=== PATIENT | female | born 1995 | race Caucasian/White ===

== ENCOUNTER → 2019-11-22 16:20 | Outpatient (CLI) | payer BC, SELFPAY ==
--- NOTE | ~2019-11-22 | XR_ITS ---
XR wrist LT min 3V 11/22/2019 17:06 Indication: Left wrist pain Procedure: 4 views left wrist Comparison: No prior studies for comparison. Findings: Fracture, subluxation or dislocation. Normal anatomic alignment. No significant joint space narrowing. No erosive changes. No focal soft tissue abnormality. No foreign bodies. Impression: 1: No significant bone or joint abnormality. Reviewed, dictated and finalized at location A. Impression: 1: No significant bone or joint abnormality.
== END ==
PROVIDERS: Visit Provider Chiropractor
DX: M25.532 Pain in left wrist (principal)
CPT/HCPCS: 73110

== ENCOUNTER → 2021-01-13 00:44 | Outpatient (CLI) | payer BC, SELFPAY ==
[2021-01-13 17:41] LABS: SARS-CoV-2 RNA PCR Negative
== END ==
PROVIDERS: Visit Provider Internal Medicine Critical Care Medicine
DX: Z01.812 Encounter for preprocedural laboratory examination (principal); Z20.822 Contact with and (suspected) exposure to COVID-19
CPT/HCPCS: C9803; U0003; U0005

== ENCOUNTER 2021-01-15 07:27 | Outpatient (CLI) | payer BC, SELFPAY ==
--- NOTE | 2021-02-03 12:26 | WPDSLEEPSTUD ---
Sleep Study Date of Study: 01/15/21 Ordering Provider: Christopher Alvarez MD Interpreting Physician: Yvette Plasencia MD Sleep Study Type: Polysomnogram Height: 1.73 m Weight: 124.738 kg Body Mass Index: 41.8 Neck Circumference (inches): 15 Red Bud: 16 Reason for Sleep Study Hypersomnolence, loud snoring, chronic fatigue 11/17/2020 Home Sleep Test at [facility] with mild obstructive sleep apnea, apnea-hypopnea index is 2.7, all events were in the supine position, lowest desaturation 90% Sleep History Arelis Shelton is a 25 year old female with extreme hypersomnolence. She has loud snoring and constant daytime fatigue. She had COVID 01 Sep 2020 with residual problems including shortness of breath. She has a long standing seizure disorder which is well controlled. She had a home sleep test through [facility] in [facility] with a low AHI, 2.7 and lowest desaturation 90%. There is no sleep questionnaire available to review. The sleep history is obtained from the office visit 11/07/2020. Her normal bedtime is between 11:00 p.m. to midnight, wake time is 5-5:30 a.m.. Sleep onset latency is 30-45 minutes. She typically wakes once at night. She averages 6 hours of sleep at night. She snores loudly and there is a strong family history of obstructive sleep apnea in both parents. She has chronic fatigue. She falls asleep in sedentary circumstances such as sitting and reading, watching TV, sitting as a passenger in a car for an hour, lying down to rest, sitting quietly after lunch and sitting in a car while stopped in traffic. Habits: Never smoked tobacco. [facility] Past Medical History Medical History (Updated 02/03/21 @ 13:22 by Yvette Plasencia MD) Chronic fatigue History of asthma History of COVID-19 Morbid obesity with BMI of 40.0-44.9, adult Persistent dyspnea after COVID-19 Seizure disorder Surgical History Surgical History (Updated 02/03/21 @ 12:44 by Yvette Plasencia MD) History of nasal septoplasty History of tonsillectomy and adenoidectomy History of umbilical hernia repair Family History Family History (Updated 04/10/14 @ 07:13 by DOCTOR UNKNOWN) Father Hypertension Grandparent Carcinoma of colon Family history of malignant neoplasm of cervix Family history of lung cancer Family history of coronary artery disease Family history of elevated blood lipids Diabetes mellitus Family history of malignant neoplasm of male breast Other Cerebrovascular accident Social History Social History Smoking status: Never smoker Second hand tobacco smoke exposure: No Alcohol intake: never Medications Medications: vitamins 1 daily lamotrigine 100 mg twice a day albuterol HFA 90 mcg 2 puffs p.r.n. shortness of breath spironolactone 25 mg 3 times a day levocetirizine 5 mg daily [place] as needed for pain Flexeril as needed for pain Rybelsus ( semaglutide ) 3 mg once a day Sleep Procedure This test was performed using the [employer] multiple channel system including EOG, EEG, submental EMG, EKG, nasal and oral airflow using thermistors and nasal pressure sensors, chest and abdominal belts for body position data, and pulse oximetry. Video monitoring was also performed. The study was scored using CMS guidelines. Sleep Architecture The recording time is 462.4 minutes. Sleep time is 406.6 minutes. Sleep efficiency is 87.8%. Sleep latency is short, 0.9 minutes. REM latency delayed at 176 minutes. There 21 awakenings. The patient spent 12% of the study awake after sleep onset, 55.5 minutes. Sleep architecture showed 2.4% stage 1 sleep, 58.4% stage 2 sleep, 14.7% stage 3 sleep, and 12.5% stage REM. The patient was supine for 32.5% of the study. Sleep architecture showed 2 REM cycles that were fragmented in the last half of the night. She had an episode of wake lasting 28 minutes in the middle of the study. The patient had a severe headache before going to bed and had problems with her nasal brii
[2021-02-05 15:26] VITALS: BMI 41.8
== END 2021-01-16 07:34 | disposition home or self-care (01) ==
LOC: ANHCSM 07:28
DX: R06.83 Snoring (principal)
CPT/HCPCS: 95810

== ENCOUNTER 2021-12-20 16:31 | Outpatient (CLI) | payer OTHER, SELFPAY ==
--- NOTE | ~2021-12-20 | MR_ITS ---
EXAMINATION: MR lumbar spine wo con DATE: 12/20/2021 17:08 INDICATION: Chronic bilateral low back pain without sciatica . TECHNIQUE: Magnetic resonance imaging (MRI) of the lumbar spine was performed without intravenous con trast. Sequences included sagittal T2-weighted FSE, sagittal T2-weighted FS FSE, sagittal T1-weighted FSE, and axial T2-weighted FSE. COMPARISON: Lumbar spine x-ray 11/21/2014. FINDINGS: The last fully formed and hydrated disc is designated L5-S1. The marrow signal is benign an d homogenous. Conus terminates at L1. Disc dehydration at L5-S1, otherwise the discs are well hydrate d. The following disc levels are specifically discussed: T11-T12: The disc does not extend beyond the endplate margin. There is no facet joint osteoarthritis. There is no neural foraminal stenosis. There is no central canal stenosis. T12-L1: The disc does not extend beyond the endplate margin. There is no facet joint osteoarthritis. There is no neural foraminal stenosis. There is no central canal stenosis. L1-L2: The disc does not extend beyond the endplate margin. There is no facet joint osteoarthritis. T here is no neural foraminal stenosis. There is no central canal stenosis. L2-L3: The disc does not extend beyond the endplate margin. There is no facet joint osteoarthritis. T here is no neural foraminal stenosis. There is no central canal stenosis. L3-L4: The disc does not extend beyond the endplate margin. There is no facet joint osteoarthritis. T here is no neural foraminal stenosis. There is no central canal stenosis. L4-L5: Mild diffuse bulge. There is mild facet joint osteoarthritis. There is no neural foraminal mendoza nosis. There is no central canal stenosis. L5-S1: Mild diffuse bulge. There is mild facet joint osteoarthritis. There is no neural foraminal mendoza nosis. There is no central canal stenosis. IMPRESSION: 1. Mild degenerative disc disease at L4-5. 2. Mild lower lumbar facet arthropathy. Reviewed, dictated and finalized at location K.
== END 2021-12-20 16:32 ==
PROVIDERS: PCP Family Medicine; Visit Provider Anesthesiology Pain Medicine
DX: M54.50 Low back pain, unspecified (principal); G89.29 Other chronic pain; M51.36 Other intervertebral disc degeneration, lumbar region; M12.88 Other specific arthropathies, not elsewhere classified, other specified site
CPT/HCPCS: 72148

== ENCOUNTER 2022-03-29 09:45 | Outpatient (RCR) | payer OTHER, SELFPAY ==
--- NOTE | 2022-02-03 11:27 | PTOPEVAL ---
PHYSICAL THERAPY INITIAL EVALUATION. Thank you for referring Arelis Shelton to [facility].? The patient is scheduled to be seen for therapy? 2x/week for 4 weeks. Please review, sign, date and return this plan of care WESLY. I agree with and certify that the following plan of care is medically necessary. Referring Physician Date Attending Provider: Kota Arechiga, MD *PT Outpatient Evaluation Start: 02/03/22 Evaluation Information Diagnosis Low back pain, B foot pain Onset 5+ years Subjective Information Pt reports a 5 year history of Query Text:As Reported By Patient/ low back pain. She also sarah Family foot and ankle pain s/p bunion removal January. 2020, she has completed close to 6 months of therapy for this. Pt states she has tried traditional therapy for her low back without much relief. She has a history of endometritis for which she has completed pelvic floor therapy . She has a script and is interested in aquatic therapy. Pain Assessment Self Report Pain Assessment Lower Back Reported Pain Level 4 Pain Description Aching,Sharp Pain Frequency Chronic,Intermittent Lowest Pain Intensity 4 Greatest Pain Intensity 9 Lumbar ROM Lumbar Flexion (0-90) 40 Lumbar Flexion Active Ankle Lumbar Extension (0-40) 40 Lateral Flexion able to reach lateral knee Query Text:Active Hands to: joint line bilaterally Lateral Rotation Right (0-45) 45 Lateral Rotation Left (0-45) 45 Lower Extremity Range of Motion General Lower Extremity Range of Motion WFL/Left,WFL/Right Lower Extremity Muscle Strength Testing Gross Lower Extremity Strength L hip flexion 4/5 R hip flexion 4+/5 saarh knee flexion/extension 5/5 sarah hip extension 4/5 sarah hip abduction 4/5 Muscle Length Testing Right Prone Hip Internal Rotator Length 30 Left Prone Hip Internal Rotator Length ( 30 Right Prone Hip External Rotator Length 45 Left Prone Hip External Rotator Length ( 45 Left Hamstring Length -15 Right Hamstring Length -15 Right Prone Knee Flexor Muscle Length ( 100 Left Prone Knee Flexor Muscle Length ( 100 Posture Posture Evaluation View Posterior Head/C-Spine Posture
--- NOTE | 2022-02-21 14:31 | PCPTNOTE ---
Patient called & cancelled scheduled appointment this date due to not feeling well.
--- NOTE | 2022-03-03 14:50 | PTOPEVAL ---
PHYSICAL THERAPY PROGRESS REPORT. Thank you for referring Arelis Shelton to [facility].? The patient is scheduled to be seen for therapy? 2x/week for 4 weeks. Please review, sign, date and return this plan of care WESLY. I agree with and certify that the following plan of care is medically necessary. Referring Physician Date Attending Provider: Kota Arechiga, MD Assessment Status Progress Evaluation Information Diagnosis Low back pain, B foot pain Onset 5+ years Subjective Information Pt states her back and feet Query Text:As Reported By Patient/ still hurt. She states her Family back hurts most in the morning , because she does not sleep at night. Pt states once she falls asleep she can stay asleep. She has talked with multiple dancing master to try to work on her foot pain. Her neurologist states she thinks she has neuropathy into her feet, the dancing master thinks she has arthritis. Pt states all she does is work and go to doctors appointments so she has not been very active. Pain Assessment Lower Back Reported Pain Level 0 Greatest Pain Intensity 7 Lumbar ROM Lumbar Flexion (0-90) 60 Lumbar Flexion Active Ankle Lumbar Extension (0-40) 40 Lateral Flexion able to reach lateral knee Query Text:Active Hands to: joint line bilaterally Lateral Rotation Right (0-45) 45 Lateral Rotation Left (0-45) 45 Lower Extremity Range of Motion General Lower Extremity Range of Motion WFL/Left,WFL/Right Lower Extremity Muscle Strength Testing Gross Lower Extremity Strength L hip flexion 4/5 R hip flexion 4+/5 sarah knee flexion/extension 5/5 sarah hip extension 2+/5 L hip abduction 4+/5 R hip abduction 4/5 Posture Posture Evaluation View Posterior Head/C-Spine Posture Forward Head Thoracic Spine Posture Flattened Lumbar Spine Posture Increased Lordosis Pelvis Posture Anteriorly Tilted Additional Posture Comments significantly increased anterior pelvic tilt Palpation Assessment Palpation R PSIS and QL region Gait Assessment Ambulation Assistive Devices None Other Gait Observations increased knee valgus, increased later
--- NOTE | 2022-04-01 09:04 | PCPTNOTE ---
Patient called & cancelled scheduled re-evaluation this date due to having to work. She has not been re-scheduled at this time.
--- NOTE | 2022-04-15 15:20 | PTOPDC ---
Evaluation Information Assessment Status Discharge - Pt Not Present Diagnosis low back pain Subjective Information Called and spoke with patient on the phone as she had to cancel her re-evaluation d/t scheduling conflicts with her new job. Assessment PT Clinical Summary Called and spoke with pt. She states her back is doing well at this time. She states her new job requires her to stand all day and her back is not a limiting factor in this. She has completed a total of 14 physial therapy visits. She is to be discharged from skilled therapy services at this time with instruction to continue her HEP and to follow up with her referring provider if new symptoms occur. Plan of Care PT Services Indicated No Treatment Frequency and to be d/c'ed Duration
== END 2022-04-19 13:18 | disposition home or self-care (01) ==
LOC: ANHPT 09:45
PROVIDERS: PCP Family Medicine; Visit Provider Anesthesiology Pain Medicine
DX: M54.50 Low back pain, unspecified (principal); M46.1 Sacroiliitis, not elsewhere classified; M47.817 Spondylosis without myelopathy or radiculopathy, lumbosacral region; G89.29 Other chronic pain
CPT/HCPCS: 97014; 97110; 97112; 97140; 97161; 97530; G0283

== ENCOUNTER 2025-01-13 07:06 | Outpatient (CLI) | payer BC, SELFPAY ==
--- OUTSIDE RECORDS SUMMARY | 2025-01-13 07:13 | XMS_ITS | Encounter Summary ---
Author Organization [facility] Health Address [address] [place] [address] Care Team Providers Care Credit Risk Manager Name Role Phone Berny Dhillon DO Primary Care Provider Reason for Visit * Reason Comments Refill Request Encounter Details Date Type Department Care Team (Late st Contact Info) Description 08/11/2022 Refill [facility] [address] [place] [address] Edgar Riddle MD [address] [facility] [address] [place] [address] Refill Request Social History Tobacco Use Types Packs/Day Years Used Date Smoking Tobacco: Never Smokeless Tobacco: Never Alcohol Use Standard Drinks/Week Comments No 0 (1 standard drink = 0.6 oz pur e alcohol) Comments No Sex and Gender Information Value Date Recorded Sex Assigned at Female 01/19/2022 7:06 PM CDT Legal Sex Female 5:44 AM CAR HOP Gender Identity Female 01/19/2022 7:06 PM CDT Sexual Orientation Straight 01/19/2022 7: 06 PM CDT documented as of this encounter Plan of Treatment Not on file documented as of this encounter Visit Diagnoses Not on filedocumented in this encounter Care Teams Credit Risk Manager Relationship Specialty Start Date End Date Berny Dhillon DO [address] [place] [id number] PCP - General Family Medicine 11/29/17 documented as of this encounter
--- OUTSIDE RECORDS SUMMARY | 2025-01-13 07:13 | XMS_ITS ---
Author Organization [employer] [facility] Address [address] [place] [address] Care Team Providers Care Industrial Tech Instructor Name Role Phone Misty Woods Primary Care Provider REASON FOR VISIT 3 Month Follow-up Encounters Encounter Location Date Provider Diagnosis [facility] - Misty Woods [address] [place] [address] 11/22/2024 Misty Woods Plan Of Treatment No Information Progress Notes * Arelis SHELTONDOB: 5 (29 yo F)Acc No.[id number]:11/22/2024 Progress Notes Patient: Arelis SORENSON Provider: Zhanna Woods MD :1995 A ge:29 Y S ex:Female Date:11/22/2024 Phone: [facility] Subjective: * Chief Complaints: * 1 . 3 Month Follow-up. * Medical History: Objective: * Vitals: Assessment: Plan: * Treatment: * Billing Information: * Visit Code: * Procedure Codes: * Electronic signature of Pernell Wodos MD on 01/13/2025 at 07:13 AM CDT Sign off status: Pending * Provider: Zhanna Woods MD Date: 11/22/2024 Generated for Babita mtz/Popeye/Eduardoitting on: 01/13/2025 07:13 AM CDT
--- OUTSIDE RECORDS SUMMARY | 2025-01-13 07:13 | XMS_ITS | Encounter Summary ---
Author Organization [facility] Health Address [address] [facility] [place] [address] Care Team Providers Care American Board Certified Orthotist Name Role Phone Berny Dhillon DO Primary Care Provider [phone] Reason for Visit * Reason Onset Date Comments COVID-19 IMMUNIZATION/INJECTION 08/24/2021 Preop Question 08/24/2021 Encounter Details Date Type Department Care Team (Late st Contact Info) Description 08/24/2021 Telephone [facility] [address] [place] [id number] Edgar Riddle MD [address] [facility] [address] [place] [address] COVID-19 IMMUNIZATION/INJECTION ; Preop Question Social History Tobacco Use Types Packs/Day Years Used Date Smoking Tobacco: Never Smokeless Tobacco: Never Alcohol Use Standard Drinks/Week Comments No 0 (1 standard drink = 0.6 oz pur e alcohol) Comments No Sex and Gender Information Value Date Recorded Sex Assigned at Female 01/19/2022 7:06 PM CDT Legal Sex Female 5:44 AM MANAGER RESEARCH DEVELOPMENT Gender Identity Female 01/19/2022 7:06 PM CDT Sexual Orientation Straight 01/19/2022 7: 06 PM CDT documented as of this encounter Miscellaneous Notes * Telephone Encounter - Nupur Hamlin RN - 08/24/2021 10:25 AM MANAGER RESEARCH DEVELOPMENT RN returned call to patient. Pt stating she is mandated to get the Covid vaccine at work by 09/22/21.Pt stating she was wanting to clarify with Dr. Celeste if she needed to hold off on vaccine prior to surgery. Pt does not have surgery day scheduled yet, order placed 08/20/21. RN advised it is okay to get Covid vaccine prior to surgery. Pt stating she read an article about vaccine and messing up yourcycle. and would like to Dr. Celeste to advise. Per pt she would like to hold off on vaccine if possible and would be required to have an exemption to give to her employer. Will pass on to MD to advise GER RESEARCH DEVELOPMENT * Telephone Encounter - Bharti Summers - 08/24/2021 10:[address] Celeste discussed surgery with patient. It hasn't been scheduled yet. Patient's work is mandating she get vaccinated by 09/22/21. She wants to know if she should wait to have the surgery until after she's vaccinated. Please advise: [phone] GER RESEARCH DEVELOPMENT documented in this encounter Plan of Treatment Not on file documented as of this encounter Visit Diagnoses Not on filedocumented in this encounter Care Teams American Board Certified Orthotist Relationship Specialty Start Date End Date Berny Dhillon DO [address] [place] [id number] PCP - General Family Medicine 11/29/17 documented as of this encounter
--- OUTSIDE RECORDS SUMMARY | 2025-01-13 07:13 | XMS_ITS ---
Author Organization [facility] Address [address] [place] [address] Care Team Providers Care Pearl Fisherman Name Role Phone Misty Woods Primary Care Provider [phone] REASON FOR VISIT Provider change for medication Encounters Encounter Location Date Provider Diagnosis [facility] - Misty Woods [address] [place] [address] 10/09/2024 Misty Woods Plan Of Treatment No Information Progress Notes * SHIRAArelis QIUDOB: 5 (29 yo F)Acc No.[id number]:10/09/2024 Patient: Arelis SORENSON :1995 A ge:29 Y S ex:Female Phone: Address:[address] [place] [place] [address] * * Date:
--- OUTSIDE RECORDS SUMMARY | 2025-01-13 07:13 | XMS_ITS | Clinical Summary ---
Author Organization [facility] Address [address] [place] [address] Care Team Providers Care L D Rn Name Role Phone Jacquie Berny Primary Care Provider [phone] Source Comments [facility],non-owned Affiliates and Associated Physician Practices is amultiple site organization consisting of ambulatory clinics and hospital sitesin [place], [place], [place] and [place]. This disclosure is being madepursuant to the Care Everywhere program and may not contain all information available regarding this patient. Last updated 18.[facility] Allergies Active Allergy Reactions Criticality Noted Date Comments Adhesive Sensitivity Rash Medium 12/29/2020 Redness Oxycodone Rash Medium 08/20/2021 Pseudoephedrine Sulfate Other 11/08/2011 Pupils constrict Sulfa Drugs Rash Low 11/12/2011 Parents think pt is allergic to sulfa drugs; ED stated it was only unrelated eczema Medications * This document contains information received from the source organization and may not represent a complete record from that organization. * Be aware that medications may not be up to date on this document. Alwaysverify current medications with the patient. terbinafine (LAMISIL) 250 MG tablet Take 250 mg by mouth once daily Active lamoTRIgine (LAMICTAL) 100 MG tablet Take 100 mg by mouth 2 times daily Active Naftifine HCl 2 % Active etodolac (LODINE) 500 MG tablet Take 500 mg by mouth 2 times daily Active meloxicam (MOBIC) 15 MG tablet Take 15 mg by mouth once daily as needed Active spironolactone (ALDACTONE) 100 MG tablet Take 100 mg by mouth once daily Active minocycline (MINOCIN) 50 MG tablet Take 50 mg by mouth 2 times daily Active Gbefuk-SxThn-Byr ed-FA-DHA w/oA (PRENA1 DRU) 30-1.4-200 MG CPCR Take 1 tablet by mouth once daily Active cyclobenzaprine (FLEXERIL) 10 MG tablet 3 times daily as needed 1 Active blood glucose (ANTHONY CONTOUR NEXT TEST) test strip 1 Active Microlet Lancets MISC 1 Active triamcinolone acetonide (KENALOG) 0.1 % ointment 1 Active ZOLMitriptan (ZOMIG) 5 MG tablet 5 mg once as needed 1 Active albuterol HFA (PROVENTIL; VENTOLIN; PROAIR) 108 (90 Base) MCG/ACT inhaler Inhale 2 puffs by mouth 1 Active clindamycin-juan oyl peroxide (DUAC) 1.2-5 % gel 1 Active ondansetron (ZOFRAN) 4 MG tablet 1 Active phentermine (IONAMINE) 30 MG capsule 30 mg once daily 1 Active Progesterone 100 MG capsule 100 mg at bedtime 1 Active tretinoin (RETIN-A) 0.025 % cream 1 Active eletriptan (RELPAX) 40 MG tablet Take 40 mg by mouth 2 Active propranolol CR 24hr (INDERAL LA) 60 MG capsule 60 mg once daily 2 Active tiZANidine (ZANAFLEX) 4 MG tablet Take 4 mg by mouth every 8 hours as needed for Muscle Spasms Active ibuprofen (MOTRIN) 600 MG tablet Take 1 (one) tablet by mouth every 6 hours as needed for Pain 40 tablet 1 2 Active senna-docusate (SENOKOT-S) 8.6-50 MG tablet Take 1 (one) tablet by mouth once daily 50 tablet 2 Active simethicone (MYLICON) 80 MG chew tablet Take 1 (one) tablet by mouth 4 times daily after meals 50 tablet 2 Active ondansetron, disintegrating, (ZOFRAN ODT) 4 MG tablet Take 1 (one) tablet by mouth every 6 hours as needed for Nausea/Vomiti ng Allow tablet to dissolve on the tongue 25 tablet 2 Active polyethylene glycol 3350 (MIRALAX) 17 GM/SCOOP powder Take 17 (seventeen) g by mouth once daily 500 g 2 Active HYDROcodone-acet aminophen (NORCO) 5-325 MG tablet Take 1 (one) tablet by mouth every 4 hours as needed 20 tablet 2 Active bethanechol (URECHOLINE) 10 MG tablet TAKE ONE TABLET BY MOUTH THREE TIMES A DAY 90 tablet 1 2 Active baclofen (Lioresal) 10 MG tablet TAKE 1 TABLET BY MOUTH TWICE A DAY 90 tablet 1 3 Active norethin-eth estradiol-FE (Loestrin Fe 09/02; Junel Fe 09/02; Microgestin Fe 09/02) 1-20 MG-MCG tablet Take 1 (one) tablet by mouth once daily 84 tablet 4 3 Active norethindrone (Aygestin) 5 MG tablet Take 1 (one) tablet by mouth once daily 30 tablet 2 5 Active Active Problems Problem Noted Date Diagnosed Date Preoperative testing 10/26/2021 Post-operative state 10/26/2021 Dehydration 11/12/2011 Overview (11/12/2011): Arelis is a 16 year old female s/p dental surgery one day prior to admission who presented with bleeding from her op site, emesis, diarrhea, and feeling lightheaded and dizzy. Zofran did not help emesis and she had not been tolerating PO (including PCN and pain medication). Given 1L NS bolus in ED x2. BMP and CBC consistent with dehydration. WBC elevation with left shift likely due to demargination from recent surgery. Admitted for hydration and pain control. Assessment/Ddx: dehydration from poor PO intake and high output from stools and emesis. Plan: -Cv/Resp: positive orthostatics in ED. Monitor vitals. Bedrest with bathroom privileges. -FEN/GI: mechanical soft diet, MIVF. Monitor I/O -ID: continue prescribed PCN. High WBC likely reactive from surgery. Monitor for fevers. -Neuro/Pain: oxycodone PRN for pain. Ice packs to face for swelling, pain relief Thrombocytopenia 11/08/2011 Encounters Date Type Department Care Team Description 12/22/2024 Refill [facility] - TRAINING COORDINATOR [address] [place] [address] Grace Tan MD Refill Request from Last 3 Months Family History Medical History Relation Name Comments Other Brother brother has EE Diabetes - Type 1 Father Asthma Mother Diabetes - Type 1 Mother Relation Name Status Comments Brother Father Mother Social History Tobacco Use Types Packs/Day Years Used Date Smoking Tobacco: Never Smokeless Tobacco: Never Tobacco Cessation:Counseling Given: Not Answered Alcohol Use Standard Drinks/Week Comments No 0 (1 standard drink = 0.6 oz pur e alcohol) PHQ-2 Answer Date Recorded Patient Health Questionnaire-2 Score 1 10/15/2023 Comments No Sex and Gender Information Value Date Recorded Sex Assigned at Female 01/19/2022 7:06 PM CDT Legal Sex Female 5:44 AM OBSTETRICS GYN Gender Identity Female 01/19/2022 7:06 PM CDT Sexual Orientation Straight 01/19/2022 7: 06 PM CDT Last Filed Vital Signs Vital Sign Reading Time Taken Comments Blood Pressure 126/78 10/18/2023 3:01 PM OBSTETRICS GYN Pulse 74 10/27/2021 12:00 PM CDT Temperature 37 C (98.6 F) 10/27/2021 12:00 PM CDT Respiratory Rate 20 10/27/2021 12:00 PM CDT Oxygen Saturation 98% 10/27/2021 12:00 PM CDT Inhaled Oxygen Concentration - - Weight 129.7 kg (286 lb) 10/18/2023 3:01 PM OBSTETRICS GYN Height 172.7 cm (5' 8) 10/18/2023 3:01 PM OBSTETRICS GYN Body Mass Index 43.49 10/18/2023 3:01 PM OBSTETRICS GYN Plan of Treatment Health Maintenance Due Date Last Done Comments PAP SMEAR 1995 HIV SCREENING 2010 HEPATITIS C SCREENING 07/13/2013 DTAP/TDAP/TD VACCINES (1 - Tdap) 2014 HEPATITIS B VACCINE (1 of 3 - 19+ 3-dose series) 2014 COVID-19 VACCINE (1 - 2023-2 5 season) 2024 DEPRESSION SCREENING 08/14/2024 10/18/2023 INFLUENZA VACCINE (Season Ended) 2025 ZOSTER VACCINE (1 of 2) 2045 HIB VACCINE Aged Out No longer eligi ble based on patient's age to complete this topic HPV VACCINE Aged Out No longer eligi ble based on patient's age to complete this topic MENINGOCOCCAL (Group B) VACC INE SHARED DECISION-MAKING Aged Out No longer eligibl e based on patient's age to complete this topic MENINGOCOCCAL GROUPS A/C/Y/W VACCINE Aged Out No longer eligible b ased on patient's age to complete this topic PNEUMOCOCCAL VACCINE Aged Out No long er eligible based on patient's age to complete this topic Medical Devices Implanted Type Area Emergency Communications Officer Device Identifier Shelf Expiration Date Model / Serial / Lot Graft Tissue Amniofix Purion Amnio Membr Implanted:Qty: 1 on 10/26/2021 by Edgar Riddle MD at [facility] N/A: Abdomen MiMedx 05/14/2026 [facility]-[id number] / / Description:[id number] Insurance [facility] [place] [address] ANTH Care Teams L D Rn Relationship Specialty Start Date End Date Berny Dhillon DO [address] [place] [address] [id number] PCP - General Family Medicine 11/29/17
--- OUTSIDE RECORDS SUMMARY | 2025-01-13 07:14 | XMS_ITS | Encounter Summary ---
Author Organization [facility] Address [address] [place] [address] Care Team Providers Care Design Lead Name Role Phone Berny Dhillon DO Primary Care Provider [phone] Reason for Visit * Reason Onset Date Comments Medication Refill 01/18/2022 Encounter Details Date Type Department Care Team (Late st Contact Info) Description 01/18/2022 [address]ill [facility] [address] [place] [address] Berny Dhillon DO [address] [address] Social History Tobacco Use Types Packs/Day Years Used Date Smoking Tobacco: Never Smokeless Tobacco: Never Alcohol Use Standard Drinks/Week Comments No 0 (1 standard drink = 0.6 oz pur e alcohol) Comments No Sex and Gender Information Value Date Recorded Sex Assigned at Not on file 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
--- OUTSIDE RECORDS SUMMARY | 2025-01-13 07:14 | XMS_ITS | Encounter Summary ---
Author Organization [facility] Address [address] [place] [address] Care Team Providers Care Community Mental Health Worker Name Role Phone Berny Dhillon DO Primary Care Provider [phone] Reason for Visit * Reason Onset Date Comments Medication Refill 01/18/2022 Encounter Details Date Type Department Care Team (Late st Contact Info) Description 01/18/2022 [address]ill [facility] [address] [place] [address] Berny Dhillon DO [address] [address] Social History Tobacco Use Types Packs/Day Years Used Date Smoking Tobacco: Never Smokeless Tobacco: Never Alcohol Use Standard Drinks/Week Comments No 0 (1 standard drink = 0.6 oz pur e alcohol) Comments No Sex and Gender Information Value Date Recorded Sex Assigned at Not on file 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
--- OUTSIDE RECORDS SUMMARY | 2025-01-13 07:14 | XMS_ITS | Encounter Summary ---
Author Organization [facility] Address [address] [place] [address] Care Team Providers Care Tube Former Operator Name Role Phone Berny Dhillon DO Primary Care Provider [phone] Reason for Visit * Reason Onset Date Comments Medication Refill 01/29/2022 Encounter Details Date Type Department Care Team (Late st Contact Info) Description 01/29/2022 Refill [facility] [address] [place] [address] Baldev Cesar MD [address] [facility] [address] [place] [address] Social History Tobacco Use Types Packs/Day Years Used Date Smoking Tobacco: Never Smokeless Tobacco: Never Alcohol Use Standard Drinks/Week Comments No 0 (1 standard drink = 0.6 oz pur e alcohol) Comments No Sex and Gender Information Value Date Recorded Sex Assigned at Not on file 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
--- OUTSIDE RECORDS SUMMARY | 2025-01-13 07:14 | XMS_ITS | Encounter Summary ---
Author Organization [facility] Address [address] [place] [address] Care Team Providers Care Dispatch Lead Name Role Phone Berny Dhillon DO Primary Care Provider [phone] Reason for Visit * Reason Onset Date Comments Medication Refill 01/18/2022 Encounter Details Date Type Department Care Team (Late st Contact Info) Description 01/18/2022 [address]ill [facility] [address] [place] [address] Berny Dhillon DO [address] [address] Social History Tobacco Use Types Packs/Day Years Used Date Smoking Tobacco: Never Smokeless Tobacco: Never Alcohol Use Standard Drinks/Week Comments No 0 (1 standard drink = 0.6 oz pur e alcohol) Comments No Sex and Gender Information Value Date Recorded Sex Assigned at Not on file 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
--- OUTSIDE RECORDS SUMMARY | 2025-01-13 07:14 | XMS_ITS | Encounter Summary ---
Author Organization [facility] Address [address] [place] [address] Care Team Providers Care Geodetic Technician Name Role Phone Berny Dhillon DO Primary Care Provider Reason for Visit * Reason Onset Date Comments Medication Refill 01/18/2022 Encounter Details Date Type Department Care Team (Late st Contact Info) Description 01/18/2022 Refill [facility] [address] [place] [address] Baldev Cesar MD [address] [facility] [address] [place] [address] Social History Tobacco Use Types Packs/Day Years Used Date Smoking Tobacco: Never Smokeless Tobacco: Never Alcohol Use Standard Drinks/Week Comments No 0 (1 standard drink = 0.6 oz pur e alcohol) Comments No Sex and Gender Information Value Date Recorded Sex Assigned at Not on file Legal Sex Female 5:[address] SCAN TECHNOLOGIST Gender Identity Not on file Sexual Orientation Not on file Occupation Industry Job Start Date Job End Date Not on file Not on file Not on file Not on file documented as of this encounter Plan of Treatment Not on file documented as of this encounter Visit Diagnoses Not on filedocumented in this encounter Care Teams Geodetic Technician Relationship Specialty Start Date End Date Berny Dhillon DO PCP - General Family Practice 11/19/20 documented as of this encounter
--- OUTSIDE RECORDS SUMMARY | 2025-01-13 07:14 | XMS_ITS | Data Portability ---
Author Organization [place] - [facility], Main Office Address [address] [place] [address] Care Team Providers Care Respiratory Therapist Assistant Name Role Phone ELLEN MEDELLIN Primary Care Provider Assessment Encounter Date Assessment Date Assessment LastModified by Organization Details LastModified Time 02/27/2023 02/27/2023 This note is dictated and transcribed by [employer]. Metabolic Specialist variances may occur. Despite proofreading, typographical errors may occur. Not available 02/27/2023 17:39:34 06/13/2023 06/13/2023 This note is dictated and transcribed by [employer]. Metabolic Specialist variances may occur. Despite proofreading, typographical errors may occur. Not available 06/13/2023 14:54:54 06/26/2023 06/26/2023 This note is dictated and transcribed by [employer]. Metabolic Specialist variances may occur. Despite proofreading, typographical errors may occur. Not available 06/26/2023 16:55:09 Plan of Treatment Reminders Order Date Submit Date Provider Last Modified By Organization Details Last Modified Time Details Appointments None recorded. Lab None recorded. Referral None recorded. Procedures None recorded. Surgeries None recorded. Imaging None recorded. Medication Orders ketoconazol e 2 % topical cream 2022 023 LUIS FERNANDO Pierce, [address], [place], [place], [id number], 16:56:27 spironolact one 100 mg tablet 2022 023 rancho Pierce, [address], [place], [place], [id number], 3 15:12:58 Orilissa 150 mg tablet 2022 023 LUIS FERNANDO [facility] [place], [address] [facility] , [place], [place], [id number], 3 15:13:35 Patient TargetsNo targets recorded. Patient Instructions Encounter Date Encounter Id Patient Instructions Last Modified By Organization Details Last Modified Time 06/13/2023 [id number] paronychia: care instructions Not available 06/13/2023 14:59:41 Reason for Referral None Reported. Results Created Date Observation Date Name Description Value Unit Range Abnormal Flag Note LastModifiedBy Organization Detail LastModifiedTime Result Notes None recorded. Problems Name Problem SNOMED Code Status Onset Date Resolution Date Notes Provider Name and Address Organization Details Recorded Time Generalized headache 539422131 Active 2021 Not Available [facility] 3 07:30:14 Endometriosis of pelvis 79263090 Active 2021 Not Available [facility] 3 07:30:14 Onychomycosis of toenails 965516355 Active 2022 Not Available [facility] 3 07:30:15 Bunion 079459568 Active 2022 Not Available [facility] 3 07:30:15 Prediabetes 843189267 Active 2021 Not Available [facility] 3 07:30:15 Weight gain 6964477 Active 2021 Not Available [facility] 3 07:30:15 Polycystic ovary syndrome 388111875 Active 2022 BRADLEY Durbin null, [employer] [facility] 3 09:16:26 Endometriosis (clinical) 763470856 Active 2022 Misty Woods MD [address] [place] [address], [place] [address], [place], [address] , [facility] 3 15:12:57 Problem Notes None recorded. Procedures Surgical History Date Name Laterality Status Provider Name and Address Organization Details Recorded Time 06/13/20 Blank Procedure Note completed Trent Harper DPM [address], [place], [address], [facility] 06/13/2023 15:01:35 11/15/19 Blank Procedure Note completed Trent Harper DPM [address], [place], [address], [facility] 11/15/2022 11:17:37 Unlisted procedure nose completed Not Available [facility] 10/12/2022 07:26:19 Hernia Repair completed Not Available [facility] 10/12/2022 07:26:19 Breast Biopsy completed Not Available [facility] 10/12/2022 07:26:19 Tonsillectomy completed Not Available [facility] 10/12/2022 07:26:19 excision of bunion completed Not Available [facility] 10/12/2022 07:26:19 laparoscopic excision of pelvic endometriosis completed Not Available [facility] 10/12/2022 07:26:19 Imaging Results None recorded. Procedure Notes None recorded. Medical Equipment None Reported. Allergies Allergen ID Allergen Name Allergen Category Reaction Reaction Severity Criticality Documentation Date Start Date Code Code System Note Provider Name and Address Organization Details Recorded Time 44596 Substance with sulfonami de structure and antibacte rial mechanism of action (substanc e) medicatio n Not available Not available Not available 10/12/2022 33453 8003 SNOMED Not Available [facility] 3 07:35:58 73162 Sudafed medicatio n Not available Not available Not available 10/12/202274868 2 RxNorm Not Available [facility] 3 07:35:58 59523 pseudoeph edrine Not available Not available Not available Not available 10/12/2022 8896 RxNorm Not Available [facility] 3 07:35:58 14414 acetamino phen / oxycodone medicatio n Not available Not available Not available 10/12/2022 12563 3 RxNorm Not Available [facility] 3 07:35:58 00179 oxycodone medicatio n Not available Not available Not available 10/12/2022 7804 RxNorm Not Available [facility] 3 07:35:58 01085 adhesive tape environme nt,medica tion Not available Not available Not available 10/12/2022 67189 UNK Not Available [facility] 3 07:35:58 Medications Name Sig Start Date Stop Date Status Note LastModified by Organization Details LastModified Time fluoxetine 40 mg capsule TAKE 1 CAPSULE BY MOUTH EVERY DAY 03/21 completed Not Available Not Available Not Available cyclobenzap rine 10 mg tablet active Not Available Not Available Not Available tretinoin 0.1 % topical cream 03/21 completed Not Available Not Available Not Available amoxicillin 500 mg capsule active Not Available Not Available Not Available terbinafine HCl 1 % topical cream APPLY TOPICALLY TO AFFECTED AREA TWICE A DAY 03/21 completed Not Available Not Available Not Available clindamycin HCl 300 mg capsule TAKE 1 CAPSULE BY MOUTH FOUR TIMES A DAY UNTIL GONE 12/22 completed Not Available Not Available Not Available Concerta 18 mg tablet,exte nded release TAKE 1 TABLET BY MOUTH EVERY DAY active Not Available Not Available No t Available Xerac AC 6.25 % topical solution Apply 1 applicati on every day by topical route in the morning for 90 days. 03/21 completed Not Available Not Available Not Available ibuprofen 800 mg tablet 04/12 completed Not Available Not Available Not Available bethanechol chloride 10 mg tablet TAKE 1 TABLET BY MOUTH THREE TIMES A DAY active Not Available Not Available No t Available tizanidine 4 mg tablet Take 1 tablet every 6 hours by oral route. 03/21 completed Not Available Not Available Not Available levetiracet am 500 mg tablet 03/20 completed Not Available Not Available Not Available sumatriptan 100 mg tablet 03/20 completed Not Available Not Available Not Available hydrocodone 5 mg-acetamin ophen 325 mg tablet 11/16 completed Not Available Not Available Not Available tretinoin 0.025 % topical cream 03/21 completed Not Available Not Available Not Available meloxicam 15 mg tablet active Not Available Not Available Not Available ondansetron HCl 4 mg tablet Take 1 tablet(s) twice a day by oral route as needed for 30 days. 11/16 completed Not Available Not Available Not Available prednisone 20 mg tablet 11/16 completed Not Available Not Available Not Available spironolact one 100 mg tablet Take 1 Tablet (100 mg) by mouth 2 times daily before meals. active Not Available Not Available No t Available propranolol ER 60 mg capsule,24 hr,extended release Take 1 capsule every day by oral route in the morning for 90 days. 03/21 completed Not Available Not Available Not Available Maxalt 10 mg tablet Take by oral route. 05/24 completed Not Available Not Available Not Available penicillin V potassium 500 mg tablet 12/22 completed Not Available Not Available Not Available doxycycline monohydrate 100 mg tablet TAKE 1 TABLET BY MOUTH TWICE A DAY FOR 7 DAYS 04/12 completed Not Available Not Available Not Available tramadol 50 mg tablet 01/18 completed Not Available Not Available Not Available zolmitripta n 5 mg tablet TAKE 1 TABLET BY MOUTH ONCE DAILY NEEDED FOR MIGRAINE. MAY REPEAT 1 TIME AFTER 2 HOURS IF NEEDED. active Not Available Not Available No t Available spironolact one 25 mg tablet TAKE 3 TABLETS BY MOUTH DAILY 03/02 completed Not Available Not Available Not Available phentermine 30 mg capsule Take 1 capsule every day by oral route in the morning for 90 days. 04/12 completed Not Available Not Available Not Available lamotrigine 25 mg tablet 05/14 completed Not Available Not Available Not Available ketorolac 10 mg tablet 05/24 completed Not Available Not Available Not Available nortriptyli ne 25 mg capsule Take 1 Capsule (25 mg) by mouth 2 times daily before meals. active Not Available Not Available No t Available cefadroxil 500 mg capsule 05/24 completed Not Available Not Available Not Available terbinafine HCl 250 mg tablet TAKE 1 TABLET BY MOUTH TWICE A DAY FOR 1 WEEK EVERY MONTH active Not Available Not Available No t Available alprazolam 0.5 mg tablet 03/02 completed Not Available Not Available Not Available doxycycline monohydrate 50 mg capsule Take 1 capsule every 12 hours by oral route with meals for 14 days. 04/12 completed Not Available Not Available Not Available amoxicillin 875 mg tablet active Not Available Not Available Not Available alprazolam 0.25 mg tablet 01/18 completed Not Available Not Available Not Available lorazepam 0.5 mg tablet 03/21 completed Not Available Not Available Not Available dexamethaso ne 1 mg tablet TAKE 1 TABLET NEEDED BY MOUTH AT BEDTIME FOR 1 DAY. 03/21 completed Not Available Not Available Not Available diazepam 2 mg tablet TAKE 1 TABLET BY MOUTH 1 HOUR BEFORE EXAM, MAY REPEAT 15 MINUTES PRIOR MUST HAVE CURRICULUM MANAGER active Not Available Not Available No t Available baclofen 10 mg tablet TAKE 1 TABLET BY MOUTH TWICE A DAY active Not Available Not Available No t Available benzonatate 100 mg capsule active Not Available Not Available Not Available cephalexin 500 mg capsule 05/14 completed Not Available Not Available Not Available oseltamivir 75 mg capsule TAKE 1 CAPSULE BY MOUTH EVERY 12 HOURS FOR 5 DAYS 04/12 completed Not Available Not Available Not Available triamcinolo ne acetonide 0.1 % topical ointment 03/21 completed Not Available Not Available Not Available naproxen 500 mg tablet,jet yed release 05/14 completed Not Available Not Available Not Available propranolol ER 80 mg capsule,24 hr,extended release active Not Available Not Available Not Available indomethaci n 25 mg capsule 01/18 completed Not Available Not Available Not Available minocycline 50 mg capsule 03/21 completed Not Available Not Available Not Available gabapentin 300 mg capsule TK 1 C PO HS FOR 1 WEEK THEN CAN INCREASE TO BID active Not Available Not Available No t Available mupirocin 2 % topical ointment 03/21 completed Not Available Not Available Not Available norethindro ne acetate 5 mg tablet 03/21 completed Not Available Not Available Not Available gabapentin 100 mg capsule TAKE 2 CAPSULES BY MOUTH 3 TIMES A DAY. active Not Available Not Available No t Available lorazepam 1 mg tablet 12/22 completed Not Available Not Available Not Available diazepam 10 mg tablet 04/12 completed Not Available Not Available Not Available ibuprofen 600 mg tablet 04/12 completed Not Available Not Available Not Available polyethylen e glycol 3350 17 gram/dose oral powder 03/21 completed Not Available Not Available Not Available methylpredn isolone 4 mg tablets in a dose pack active Not Available Not Available Not Available albuterol sulfate HFA 90 mcg/actuati on aerosol inhaler active Not Available Not Available Not Available norethindro ne (contracept dago) 0.35 mg tablet TAKE 1 TABLET BY MOUTH EVERY DAY IN THE MORNING 04/12 completed Not Available Not Available Not Available propranolol 20 mg tablet TAKE 1 TABLET BY MOUTH TWICE DAILY 11/16 completed Not Available Not Available Not Available ketoconazol e 2 % topical cream APPLY TO THE AFFECTED AREA(S) affected toenails BY TOPICAL ROUTE ONCE DAILY active Not Available Not Available No t Available ondansetron 4 mg disintegrat ing tablet 11/16 completed Not Available Not Available Not Available etodolac 500 mg tablet active Not Available Not Available Not Available fluoxetine 20 mg capsule TAKE 1 CAPSULE BY MOUTH ONCE A DAY 03/21 completed Not Available Not Available Not Available metformin ER 500 mg tablet,exte nded release 24 hr Take 1 tablet every day by oral route at dinner for 90 days. 03/21 completed Not Available Not Available Not Available dicyclomine 10 mg capsule 01/18 completed Not Available Not Available Not Available lamotrigine 100 mg tablet TAKE 1 TABLET BY MOUTH TWICE A DAY active Not Available Not Available No t Available naproxen 500 mg tablet 05/14 completed Not Available Not Available Not Available methylpheni date ER 36 mg tablet,exte nded release 24 hr TAKE 1 TABLET BY MOUTH ONCE A DAY 03/21 completed Not Available Not Available Not Available spironolact one 50 mg tablet Take 2 tablets every day by oral route in the morning for 90 days. 04/12 completed Not Available Not Available Not Available Microlet Lancet Check sugars twice daily for 90 days active Not Available Not Available No t Available progesteron e micronized 100 mg capsule Take 1 capsule every day by oral route in the morning for 25 days. 11/16 completed Not Available Not Available Not Available amoxicillin 875 mg-potassiu m clavulanate 125 mg tablet TAKE 1 TABLET BY MOUTH TWICE A DAY FOR 7 DAYS active Not Available Not Available No t Available Actos 30 mg tablet Take 1 tablet every day by oral route in the morning for 90 days. 04/12 completed Not Available Not Available Not Available eletriptan 40 mg tablet active Not Available Not Available Not Available cyclobenzap rine 5 mg tablet 11/16 completed Not Available Not Available Not Available Tri-Sprinte c (28) 0.18 mg(7)/0.215 mg(7)/0.25 mg(7)-0.035 mg tablet 03/16 completed Not Available Not Available Not Available doxycycline monohydrate 40 mg capsule,imm ediate - delay release Take 1 capsule every day by oral route in the morning for 42 days. 04/12 completed Not Available Not Available Not Available metformin ER 500 mg 24 hr tablet,exte nded release (gastric retention) Take 1 tablet twice a day by oral route before meals for 30 days. 12/29 completed Not Available Not Available Not Available clindamycin 1.2 % (1 % base)-benzo yl peroxide 5 % topical gel 03/21 completed Not Available Not Available Not Available lisdexamfet amine 50 mg capsule TAKE 1 CAPSULE BY MOUTH ONCE DAILY active Not Available Not Available No t Available levocetiriz ine 5 mg tablet active Not Available Not Available Not Available Vyvanse 40 mg capsule TAKE 1 CAPSULE BY MOUTH EVERY DAY active Not Available Not Available No t Available azelastine 205.5 mcg (0.15 %) nasal spray 01/18 completed Not Available Not Available Not Available tranexamic acid 650 mg tablet 12/29 completed Not Available Not Available Not Available Lo Loestrin Fe 1 mg-10 mcg (24)/10 mcg (2) tablet 09/30 completed Not Available Not Available Not Available naftifine 2 % topical cream 03/21 completed Not Available Not Available Not Available Contour Next Test Strips Take by miscell. route for 90 days. active Not Available Not Available No t Available Sargent-Linyah 0.25 mg-0.035 mg tablet 03/21 completed Not Available Not Available Not Available Prena1 Cat 30 mg-1.4 mg-200 mg capsule,imm ediate - delay release TAKE 1 CAPSULE BY MOUTH EVERY DAY active Not Available Not Available No t Available Regi 24 Fe 1 mg-20 mcg (24)/75 mg (4) tablet Take 1 tablet every day by oral route. active Not Available Not Available No t Available Contour Next One Meter active Not Available Not Available Not Available Balcoltra 0.1 mg-0.02 mg (21)/iron (7) tablet 03/20 completed Not Available Not Available Not Available Orilissa 150 mg tablet take one tablet once daily in the morning active Not Available Not Available No t Available M- Plus 27 mg iron-1 mg tablet TAKE 1 TABLET BY MOUTH EVERY DAY active Not Available Not Available No t Available Slynd 4 mg (28) tablet TAKE 1 TABLET BY MOUTH EVERY DAY active Not Available Not Available No t Available Rybelsus 7 mg tablet Take 1 tablet every day by oral route in the morning for 30 days. 08/10 completed Not Available Not Available Not Available Rybelsus 3 mg tablet TAKE 1 TABLET BY MOUTH EVERY DAY IN THE MORNING 08/30 completed Not Available Not Available Not Available Renetta Fe 09/02 (28) 1 mg-20 mcg (21)/75 mg (7) tablet active Not Available Not Available N ot Available Lagevrio 200 mg capsule (EUA) TAKE 4 CAPSULES (800 MG TOTAL) BY MOUTH EVERY 12 HOURS FOR 5 DAYS 03/21 completed Not Available Not Available Not Available Vitals Date Recorded Body height Body mass index (BMI) Body weight Heart rate Respiratory rate Oxygen saturation Oxygen saturation in Arterial blood by Pulse oximetry Systolic blood pressure Diastolic blood pressure Provider Name and Address Organization Details Last Updated DateTime 4 172.72 cm 43.5 kg/m2 492846. 42 g 74 /min 14 /min 99 % 99 % 128 mm[Hg] 92 mm[Hg] Yesenia Pitts [facility] 4 15:39:06 Date Recorded Body height Body mass index (BMI) Body weight Heart rate Respiratory rate Oxygen saturation Oxygen saturation in Arterial blood by Pulse oximetry Systolic blood pressure Diastolic blood pressure Provider Name and Address Organization Details Last Updated DateTime 3 172.72 cm 46.4 kg/m2 634217. 67 g 77 /min 14 /min 99 % 99 % 130 mm[Hg] 101 mm[Hg] Yesenia Pitts [facility] 3 17:28:29 Date Recorded Body height Body mass index (BMI) Body weight Body temperature Respiratory rate Heart rate Provider Name and Address Organization Details Last Updated DateTime 3 172.72 cm 43.5 kg/m2 175703. 14 g 98 [degF] 16 /min 88 /min Alyssia Wei RN [facility] 3 14:57:29 Date Recorded Body height Body mass index (BMI) Body weight Heart rate Respiratory rate Oxygen saturation Oxygen saturation in Arterial blood by Pulse oximetry Systolic blood pressure Diastolic blood pressure Provider Name and Address Organization Details Last Updated DateTime 3 172.72 cm 43.5 kg/m2 216526. 42 g 88 /min 14 /min 99 % 99 % 141 mm[Hg] 104 mm[Hg] Yesenia Pitts [facility] 3 14:17:46 Date Recorded Body height Body mass index (BMI) Body weight Heart rate Respiratory rate Oxygen saturation Oxygen saturation in Arterial blood by Pulse oximetry Systolic blood pressure Diastolic blood pressure Provider Name and Address Organization Details Last Updated DateTime 3 172.72 cm 43.5 kg/m2 923072. 42 g 85 /min 14 /min 99 % 99 % 115 mm[Hg] 88 mm[Hg] Yesenia Pitts [facility] 3 15:58:16 Social History Question Answer Notes LastModified by [employer] Details LastModified Time Tobacco Smoking Status [facility]/02/2023 15:35:57 What Is Your Level Of Caffeine Consumption? Occasional [id number] Information not available 10/12/2022 How Much Tobacco Do You Chew? None [id number] Information not available 10/12/2022 In The 14 Days Before Symptom Onset, Have You Had Close Contact With A Laboratory-confirm ed COVID-19 While That Case Was Ill? No Information n ot available 10/02/2023 In The 14 Days Before Symptom Onset, Have You Had Close Contact With A Person Who Is Under Investigation For COVID-19 While That Person Was Ill? No Information not available 10/02/2023 Which Illicit Or Recreational Drugs Have You Used? No Information not available 10/02/2023 Sex: Unknown Functional Status Question Answer Note LastModified by [employer] Details LastModified Time What is your level of alcohol consumption? None [id number] Information not available 10/12/2022 Do you or have you ever used smokeless tobacco? Never used smokeless tobacco [id number] Information not available 10/12/2022 Do you or have you ever used e-cigarettes or vape? Never used electronic cigarettes Information not available 10/02/2023 Mental Status None recorded. Family History Relationship Description Onset Age of this Age Resolved Age Notes LastModified by Organization Details LastModified Time Father Diabetes mellitus [id number] Not available 10/12/2022 07:26:20 Mother Diabetes mellitus [id number] Not available 10/12/2022 07:26:20 Mother Cerebrovascu lar accident Not available 15:35:56 Medical History Condition Response SEIZURES/EPILEPSY Y HEADACHES/MIGRAINES Y OBESITY Y BACK / NECK PROBLEMS Y Gynecological HistoryNo gynecological history recorded. Obstetrics History GPAL:G 0 P 0 0 0 0 Past Encounters Encounter ID Performer Location Encounter Start Date Encounter Closed Date Diagnosis/Indication Diagnosis SNOMED-CT Code Diagnosis ICD10 Code Diagnosis Note [id number] Misty Woods MD [facility] [address] [place] [address] 12/22/2020 00:00:00 12/22/2020 16:42:32 [id number] Misty Woods MD [facility] [place] [address] [place] [address] 03/02/2021 00:00:00 03/02/2021 18:16:11 [id number] Misty Woods MD [facility] [place] [address] [place] [address] 05/24/2021 00:00:00 05/24/2021 18:27:50 [id number] Misty Woods MD [facility] [place] [address] [place] [address] 08/10/2021 00:00:00 08/10/2021 17:41:52 [id number] Misty Woods MD [facility] [place] [address] [place] [address] 11/16/2021 00:00:00 11/16/2021 21:45:46 [id number] Misty Woods MD [facility] [place] [address] [place] [address] 04/12/2022 00:00:00 04/13/2022 14:07:51 [id number] Misty Woods MD [facility] [place] [address] [place] [address] 08/30/2022 00:00:00 08/30/2022 21:04:57 [id number] Trent Harper DPM [facility] [place] [address] [place] [address] 10/03/2022 00:00:00 10/10/2022 08:47:00 [id number] Trent Harper DPM [facility] [place] [address] [place] [address] 11/14/2022 16:52:42 11/15/2022 12:21:10 Onychomycosis of toenails 834239596 B35.1 Total nail avulsion left great toenail todayVerba l consent for procedureW ound care reviewed with the patientfol low-up 2 weeks [id number] Trent Harper DPM [facility] [place] [address] [place] [address] 11/28/2022 17:05:32 11/30/2022 09:19:49 Onychomycosis of toenails 379935999 B35.1 Total nail avulsion left great toenail HealedDC wound careapply ketoconazo le daily to the nail and nail bedfollow- up in 3 months [id number] Trent Harper DPM [facility] [place] [address] [place] [address] 02/27/2023 17:23:30 02/27/2023 17:56:50 Onychomycosis of toenails 535771645 B35.1 resolved left great toenailPat ient will return for procedure for the right great toenail, right 2nd toenail and left 2nd toenail for total nail avulsionfo llow up for procedure [id number] Misty Woods MD [facility] [place] [address] [place] [address] 03/21/2023 14:52:10 03/21/2023 16:22:55 Polycystic ovary syndrome 013639159 E28.2 Patient no longer on metformin due to side effects/GI . She has done well on spironolac tone and testostero ne levels have remained in normal range. She has modified her diet to focus mainly on meat and rice and she has lost over 20 pounds since her new job. She was encouraged this is great news and she should focus on her current dietary intake but try to incorporat e more veggies and fruits for macronutri ents and vitamins. Recommende d up to 120 grams of carbs a day split into 6 small 15-20 gram carb meals in addition to up to 120 grams of protein daily split into 15-20 grams for 5-6 smaller meals. The recommende d diet should be one of which she can incorporat e on a daily basis that will not modulate her lifestyle - discussed a diet of increased fiber; decreased refined carbohydra misty, trans fats, and saturated fats with focus on monounsatu rated fats such as unprocesse d chicken, turkey, nuts (excluding peanuts) and beans. Endometrio sis (clinical) [id number] N80.9 Continue on orilissa as she has no further pelvic pain associated with her cycles- she was encouraged to maintain followup with her gynecologi st to further care for her gynecologi c concerns. Spent up to 25 minutes preparing to see the patient (eg, review of tests), obtaining and/or reviewing separately obtained history, performing a medically appropriat e examinatio n and evaluation , counseling and educating the patient, ordering medication s, tests, along with documentin g clinical informatio n in the electronic health record, independen tly interpreti ng results and communicat ing results to the patient. Patient can be followed by PCP - she/he is aware of my resignatio n and last day of May 26. If needed his/her PCP can refer patient to another endocrinol ogist in the area. All questions /concerns answered and refills necessary at visit today. [id number] Trent Harper DPM [facility] [place] [address] [facility] [address] [place] [address] 06/13/2023 14:10:52 06/13/2023 16:21:44 Onychomycosis of toenails [id number] B35.1 total nail avulsion procedure today -- right great toe and left 2nd toenailsco nsent signedDres sing instructio ns and wound care instructio ns givenKeep the areas clean and dry until healedFoll ow-up in 1 week [id number] Trent Harper DPM [facility] [place] [address] [place] [address] 06/26/2023 15:49:35 06/26/2023 17:16:34 Onychomycosis of toenails [id number] B35.1 total nail avulsion procedure today -- right great toe and left 2nd toenailsRx ketoconazo le- apply daily to the toenail bed and toenail to prevent reinfectio n of toenail fungusFoll ow-up in 3 months [id number] Trent Harper DPM [facility] [place] [address] [place] [address] 10/02/2023 15:34:25 10/02/2023 16:16:19 Onychomycosis of toenails [id number] B35.1 total nail avulsion procedure today -- right great toe and left 2nd toenails-h ealed and normalRx ketoconazo le-may discontinu eFollow-up as needed Health Concerns Section Related Observation LastModified by Organization Detai ls LastModified Time None Recorded Concern Status LastModified by Organization Details LastModified Time None Recorded Advance Directives Directive None Recorded Payers Encounter Date Sequence Insurance Name Policy Number Policy Macias Covered Member ID Macias Member ID Guarantor Name 02/27/2023 1 [employer] [id number] Arelis Hester [place] [id number] Arelis Hester [place] 03/21/2023 1 [employer] [id number] Arelis Hester [place] [id number] Arelis Hester [place] 06/13/2023 1 [employer] [id number] Arelis Hester [place] [id number] Arelis Hester [place] 06/26/2023 1 [employer] [id number] Arelis Hester [place] [id number] Arelis [place] 10/02/2023 1 [facility] (PPO) [id number] Arelis Shelton [id number] Arelis Shelton Notes Date Note Type Note Provider Name and Address Organization Details Recorded Time 02/27/2023 text/html . Patient is a 27-year-old female who returns the office for follow-up on left great toenail avulsion. Patient overall is doing extremely well. Patient has regrown approximately 50% of the nail and it is normal in nature. Patient states she is very pleased with the outcomes. Patient would like to have this procedure performed on the right great and 2nd toenails well as the left 2nd toenail due to thickening and onychomycosis. I recommend this procedure going forward as this significantly reduced the upper parents of onychomycosis and resolve the issue to the left great toenail. Patient denies any other complaints. Trent Harper DPM [address], [place], [address], [employer] 02/27/2023 17:40:22 03/21/2023 text/html 27 yo female com es in for follow up in management of PCOS, prediabetes-improved . To note patient has hx of endometriosis followed by gynecology. last seen in August/ visit at that time we continued spironolactone and metformin. we trialed xerac for hyperhidrosis and orllissa for endometriosis pain. She has lost up to 20 pounds since her last visit. 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 She is lifting multiple chicken/boxes and up to 4 of these a day/equals a rack. She is drinking water more and had two hint/flavored. She is not taking metformin but taking spironolactone. She is now taking orilissa and xerac. labs from 03/11/23:glucose 93 mg/dLCr normalLFT [id number] 5.2%testosterone 12 ng/dLinsulin 13.7 uU/mldheas 82.5 ug/ml Misty Woods MD [address], [place], [address], [employer] 03/21/2023 19:48:02 06/13/2023 text/html Patient is a 27-year-old female who returns to the office for procedure on the right great toenail and left 2nd toenail secondary to onychomycosis and nail dystrophy. Patient denies any infection to the area. Patient states she has pain secondary to the thickened nature. Patient denies any other complaints. Trent Harper DPM [address], [place], [address], [employer] 06/13/2023 15:02:04 06/26/2023 text/html . Patient is a 27-year-old female who returns the office for follow-up on nail avulsion. Patient states overall she is doing well denies any ill signs of infection. Patient states she has some mild tenderness at times but overall is healing. Patient denies any open wounds or drainage. Patient denies any other complaints. Trent Harper DPM [address], [place], [address], [employer] 06/26/2023 16:56:32 10/02/2023 text/html . Patient is a 28-year-old female who returns the office for follow-up on toenail avulsion. Patient has regrown her toenails and they are normal in nature. Patient denies any further complaints. Trent Harper DPM [address], [place], [address], [employer] 10/02/2023 16:14:39 OBGyn Episode No OBEpisode recorded.
--- OUTSIDE RECORDS SUMMARY | 2025-01-13 07:15 | XMS_ITS | Clinical Summary ---
Author Organization [facility] Address [address] [place] [address] Care Team Providers Care Portfolio Architect Name Role Phone DhillonBerny soto Primary Care Provider + Velasquez Ty MD Unavailable Allergies Active Allergy Reactions Criticality Noted Date Comments Adhesive Rash Medium 12/05/2022 Adhesive Tape-Silicones Rash Medium 12/29/2020 Redness Oxycodone Rash Medium 09/07/2021 Oxycodone-Acetaminophen Rash Medium 12/05/2022 Pseudoephedrine Other (See comments),Unknown Low 11/08/2011 Pupils constrict, needs to be kept in a dark room Pseudoephedrine Hcl Unknown 10/24/2016 Sulfa (Sulfonamide Antibiotics) Rash,Unknown Medium 11/12/2011 Reaction: Rash, , Reaction: Rash, Parents think pt is allergic to sulfa drugs; ED stated it was only unrelated eczema Parents think pt is allergic to sulfa drugs; ED stated it was only unrelated eczema Medications albuterol HFA (PROVENTIL HFA,VENTOLIN HFA,PROAIR HFA) 90 mcg/actuation inhalerIndicatio ns:Prior COVID-19 diagnosis on 09/04/20, currently with shortness of breath and chest discomfort Inhale 2 puffs every 4 (four) hours as needed for shortness of breath 1 each 6 1 Active cyclobenzaprine (FLEXERIL) 10 mg tabletIndication s:Generalized headaches TAKE ONE TABLET BY MOUTH THREE TIMES A DAY NEEDED FOR HEADACHE PAIN 30 tablet 1 Active Orilissa 150 mg tablet Take 1 tablet by mouth every morning 2 Active agxmegyp16-oyop- folic acid-dha (Prena1 Cat) 30-1.4-200 mg capsule,IR & delay rel,biphaseIndic ations:Pre-sean ption counseling Take 200 mg by mouth daily 30 capsule 11 3 Active Microlet Lancet misc 3 Active benzonatate (TESSALON) 100 mg capsuleIndicatio ns:Cough Take 1 capsule (100 mg total) by mouth 3 (three) times a day as needed for cough 42 capsule 3 Active ZOLMitriptan (ZOMIG) 5 mg tablet Take 1 tablet (5 mg total) by mouth once as needed for migraine for up to 3 doses 3 tablet 4 Active propranolol XL (INNOPRAN XL) 80 mg 24 hr capsule Take 1 capsule (80 mg total) by mouth nightly 30 capsule 4 Active baclofen (LIORESAL) 10 mg tablet Take 1 tablet (10 mg total) by mouth daily as needed for muscle spasms 45 tablet 3 4 Active nortriptyline (PAMELOR) 25 mg capsuleIndicatio ns:Sacroiliitis, Lumbosacral spondylosis without myelopathy TAKE 1-2 CAPSULES BY MOUTH NIGHTLY NEEDED. 180 capsule 1 4 Active gabapentin (NEURONTIN) 100 mg capsuleIndicatio ns:Chronic bilateral low back pain without sciatica Take 2 Capsules (200 mg) by mouth 3 times daily. 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 She has had no tolerability issues with beta-martínez. I have renewed her medication as scheduled and she will follow-up in neurology clinic in a year. Assessment & Plan (03/09/2021 11:40 AM CDT): Patient has noted increase in headache frequency with historical characterization consistent with migraine without aura. Previous MRI demonstrates sterile inflammation of migraine as well. I will place her on a trial of propranolol 20 mg b.i.d. for migraine prophylaxis. She will keep her follow-up appointment in July with me. Neck pain on right side 03/04/2021 Assessment & Plan (03/04/2021 8:18 AM CDT): New problem-ordered a cervical spine xray to further evaluate neck pain which may be contributing to headaches. In the interim, follow-up with PCP for worsening symptoms or new concerns. Chronic nonintractable headache 03/04/2021 Assessment & Plan (03/04/2021 8:17 AM CDT): Acute on chronic, uncontrolled-recommended taking medication as directed, specifically if headache has not resolved within 2 hours, to repeat dosing, not to exceed 30 mg/24 hours. Advised to call Dr. Antonio's office to see if can be seen sooner than 05/20/21, either by him or his DEVELOPMENT SPEC. In the interim, follow-up with PCP for worsening symptoms or new concerns. Generalized headaches 01/26/2021 Assessment & Plan (01/26/2021 8:23 AM CDT): Flexeril was increased from 5 mg to 10 mg up to TID as needed for headache pain. Patient was advised not to drive while taking Flexeril as it may cause sedation. Also, instructed to avoid ibuprofen, Advil, Motrin, Aleve, naproxen sodium, and aspirin due to upcoming surgery in 3 days, however informed may continue to take Tylenol as directed as needed for additional pain relief. We also discussed the difference between abortive and prophylactic medications for headaches, some of which may potential interact with Lamictal (Imitrex, Ubrelvy). In addition, she was referred to a neurologist for a second opinion and recommended follow-up with PCP in the interim for uncontrolled/worsening headaches. Onychomycosis 12/16/2020 Fibroadenoma of breast, left 12/16/2020 Overview (12/16/2020): acute,Bx NAD; planned removal via [facility] Breast mass, right 12/10/2020 Acute recurrent maxillary sinusitis 11/12/2020 Assessment & Plan (11/12/2020 12:39 PM CDT): Started on Augmentin 875 mg BID x 10 days. Advised to keep appointment with ENT as scheduled. If symptoms don't resolve with treatment or return again after treatment, follow-up with PCP. History of COVID-19 11/07/2020 Morbid obesity with body mass index of 40.0-49.9 11/07/2020 Memory loss 11/07/2020 COVID-19 virus infection 09/21/2020 Assessment & Plan (09/21/2020 5:57 PM DIRECTOR AIRPORT OPERATIONS): Advised to get chest xray. Instructed to use albuterol inhaler every 4 hours as needed for shortness of breath, chest tightness, coughing jags, or wheezing. Instructed to increase clear liquids, rest, and vitamin C in diet. Advised to sleep with head elevated and use a cool mist vaporizer at bedtime for cough and congestion. Recommended follow-up with PCP if symptoms worsen, don't improve, or new symptoms develop. Abnormal electroencephalogram 04/24/2020 Assessment & Plan (09/18/2020 4:36 PM DIRECTOR AIRPORT OPERATIONS): Patient has personal history of prior abnormal EEG with epileptiform discharges locally. Her EEG is normal at this time with continued lamotrigine therapy. Assessment & Plan (04/24/2020 4:17 PM CDT): Patient has history of abnormal EEG with epileptiform discharges seen focally. Her EEG normalized after initiation of lamotrigine therapy. I will obtain a current EEG for re-evaluation at this time. Abnormal finding on MRI of brain 04/24/2020 Assessment & Plan (09/18/2020 4:37 PM DIRECTOR [employer]PORT OPERATIONS): Patient has history of prior noncontrast enhancing T2 changes seen on MRI. These are continued to be seen and represent nonspecific changes without clinical manifestation. They can be seen in normal patients as well as associated with migraine and prior history of trauma. They have been reported in association with autism as well. No specific intervention is necessary for this finding presently. Assessment & Plan (04/24/2020 4:18 PM CDT): Patient has an antecedent history of a small area of T2 weighted abnormality noncontrast enhancing of uncertain clinical significance on prior MRI a year ago. Given the uncertainty of the significance, I will obtain a contemporary MRI of the brain with and without contrast for comparison and see her back thereafter. Mild intermittent asthma without complication Polycystic ovaries 10/22/2019 Lesion of skin of breast 10/19/2019 Assessment & Plan (10/19/2019 10:08 AM DIRECTOR [employer]PORT [employer]PER[employer]): Recommended Neosporin applied topically two-three times a day to lesion on left areola until resolved. Demonstrated and encouraged monthly self-breast exams. Advised to follow-up with PCP if becomes febrile, has return of pain, the lesion enlarges, becomes erythematous, or starts draining purulent matter, or if new lesions form. 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, with behavioral disturbance 06/10/2019 Dysmenorrhea 03/21/2018 Microcytic anemia 12/02/2016 Body mass index 40+ - severely obese 07/22/2015 Overview (11/19/2016): BMI 40+ severely obese Iron deficiency anemia 03/25/2015 Overview (11/19/2016): Iron deficiency anemia Central auditory dysfunction 05/23/2014 Urinary incontinence 05/07/2012 Resolved Problems Problem Noted Date Diagnosed Date Resolved Date Seizure 04/24/2023 05/05/2023 Prediabetes 08/10/2022 03/22/2024 Weight gain 08/10/2022 03/22/2024 Post-op pain 11/25/2021 03/22/2024 Lumbosacral spondylosis without myelopathy 11/23/2021 03/22/2024 Jaw pain 12/18/2020 12/30/2020 Assessment & Plan (12/18/2020 1:26 PM CDT): Advised to continue ibuprofen per dentist and started on cyclobenzaprine 5 mg TID PRN, however informed may cause drowsiness, so to use caution if driving. Instructed to keep follow-up with dentist next week and operations lieutenant on 01/06/21, go to ER over weekend for worsening symptoms. Tooth pain with chewing 12/18/202012/12 Assessment & Plan (12/18/2020 1:27 PM CDT): Advised to continue antibiotic and and ibuprofen per dentist. Instructed to keep follow-up with dentist next week and operations lieutenant on 01/06/21, go to ER over weekend for worsening symptoms. Bunion of unspecified foot 12/16/2020 1 Overview (12/16/2020): acute on chronic,wants to see Podiatry Pain, dental 11/12/2020 12/30/2020 Assessment & Plan (11/12/2020 12:40 PM CDT): Advised to keep appointment with dentist as scheduled. Chronic fatigue 11/07/2020 12/30/2020 Family history of sleep apnea 11/07/2020 12/30/2020 Seizure disorder 11/07/2020 05/05/2023 Assessment & Plan (06/02/2021 10:03 AM CDT): Patient continues on lamotrigine 100 mg b.i.d. at this time with no seizures reported in good tolerability. Her medication has been renewed. She will follow-up in neurology clinic in a year. Assessment & Plan (03/09/2021 11:38 AM CDT): Patient will continue on lamotrigine at this time for seizures as she has good tolerability and no interval seizures. Snoring 11/07/2020 12/30/2020 Shortness of breath 09/21/2020 12/31/19 Assessment & Plan (09/21/2020 5:56 PM DIRECTOR [employer]PORT [employer]PER[employer]): See plan of care for COVID-19 infection. Viral gastroenteritis 08/01/20202020 Assessment & Plan (08/01/2020 4:24 AM DIRECTOR [employer]PORT [employer]PER[employer]): Zofran every 8 hours as needed for nausea. Recommended a clear liquid diet for the next 12 hours, then a bland diet consisting of small frequent meals for 24 hours, then advised can resume normal diet if symptoms have subsided. Off work note given per request for , Monday, and Monday, may return on 08/03/20. Nausea 08/01/2020 12/30/2020 Assessment & Plan (08/01/2020 4:24 AM DIRECTOR [employer]PORT [employer]PER[employer]): Zofran prescribed, see plan of care for viral gastroenteritis. Memory loss 04/24/2020 12/30/2020 Assessment & Plan (09/18/2020 4:36 PM DIRECTOR [employer]PORT [employer]PERATIONS): Patient reports no current memory impairment or cognitive loss or alteration or change in consciousness and this has reaffirmed by her father. She is currently under treatment for autism spectrum disorder at this time. She also continues on lamotrigine 100 mg b.i.d. which was prescribed for prior abnormal EEG with epileptiform changes. I will maintain her on the lamotrigine 100 mg b.i.d. as currently prescribed at this time. I will see her back in July at the request of her and her father as she will be losing family insurance beginning 2021 due to age. Assessment & Plan (04/24/2020 4:17 PM CDT): For overall clinical standpoint she appears similar to a year ago. She remains on lamotrigine 100 mg b.i.d. for aberrant epileptiform discharges on prior EEG that normalized upon initiation of the lamotrigine. I will obtain a contemporary EEG with hyperventilation photic stimulation for review. I will see her back thereafter. Upper respiratory tract infection 09/20/2019 12/30/2020 Assessment & Plan (06/28/2020 7:50 AM DIRECTOR AIRPORT OPERATIONS): Started on Medrol Dosepak as directed and and advised to continue antibiotic prescribed by PCP. A note was written per request to be excused for absences from work 06/23/20 and 06/25-06/27/20. Assessment & Plan (09/20/2019 2:38 PM DIRECTOR [employer]PORT [employer]PERATIONS): Medrol Dosepak as directed. Tessalon Perles one up to three times a day as needed for cough. Discussing restarting Mucinex plain ( blue box) as directed until cough is productive. Note given to be off work today and tomorrow. Advised to increase liquids, especially clear liquids, rest, and vitamin C in diet. Recommend sleeping with the head of the bed elevated and suggested using A cool mist vaporizer and Vicks VapoRub at bedtime. Instructed to follow-up with PCP if symptoms worsen, don't resolve, or new symptoms develop. Tinea pedis 03/19/2018 12/30/2020 Pes planus 06/22/2017 03/22/2024 Vision disturbance 02/06/2017 Pilonidal abscess 03/29/2015 12/30/2020 Lower urinary tract infectious disease 10/19/2012 03/22/2024 Overview (12/18/2020): possible Dehydration 11/12/2011 12/30/2020 Overview (12/18/2020): Arelis is a 16 year old female [...] packs to face for swelling, pain relief Deviated nasal septum 2020 Overview (06/25/2020): Deviated septum; Comments: MEJIA 03/20/2015 - Encounters Date Type Department Care Team Description 11/12/2024 Orders Only [facility] Health Information Management [address] [place] [id number] Galen Aguiar MD from Last 3 Months Immunizations Immunization Administration Dates Next Due DTaP 05/03/2000, 7,02/09/1996,1995,0 1995 Hep B Vaccine 04/18/1996,1995 Hep B, Adolescent or Pediatric 1995 Hib (PRP-T) 10/25/1996 IPV 02/21/1997,07/23/1996,1995 ,1995 Influenza, Unspecified 12/30/2020(Deferred: Pam ent decision) MMR 05/03/2000,10/25/1996 Tdap 12/31/2015,03/23/2010 Surgical History Surgery Date Site/Laterality Comments OTHER SURGICAL HISTORY Deviated septum: Deviated septum repair & turbinate reduction PILONIDAL CYSTECTOMY Pilonidal cyst removal NOSE SURGERY Nasal surgery CYST REMOVAL Right cyst removal BUNIONECTOMY Bilateral 2020 BREAST BIOPSY 08/14/2020 - 08/13/2021 Right BREAST BIOPSY 12/04/2020 Right Medical History Medical History Date Comments Deviated nasal septum Deviated s eptum; Comments: KJP 03/20/2015 - Hx Other Medical Genetic back di sorder, slippage of spine; Comments: RED 07/27/2015 - Seizures (HCC) Headache Low back pain PCOS (polycystic ovarian syndrome) Endometriosis Family History Medical History Relation Name Comments Diabetes Father Diabetes mellit us; Diabetes type II Father Diabetes me llitus type 2; Hypertension Father Hypertension; Sleep apnea Father Sleep apnea; Diabetes Mother Diabetes mellit us; Hypertension Mother Hypertension; Sleep apnea Mother Sleep apnea; Stroke Mother Breast cancer Paternal Grandmother Cancer , breast; Colon cancer Neg Hx Ovarian cancer Neg Hx Pancreatic cancer Neg Hx Prostate cancer Neg Hx Uterine cancer Neg Hx Relation Name Status Comments Father Alive Mother Alive Paternal Grandmother Social History Tobacco Use Types Packs/Day Years Used Date Smoking Tobacco: Never Smokeless Tobacco: Never Tobacco Cessation:Counseling Given: Not Answered Alcohol Use Standard Drinks/Week Comments No 0 (1 standard drink = 0.6 oz pur e alcohol) AUDIT-C Answer Date Recorded Q1: How often do you have a drink containing alc ohol? Never 11/23/2021 Average Number of Drinks Not on file 022 Frequency of Binge Drinking Not on file 11/12 PHQ-2 Answer Date Recorded PHQ-2 Total Score (If total score is 3 or more points, staff should administer the PHQ-9) 0 03/22/2024 Personal Safety Answer Date Recorded Have you ever been in or are you currently in a harmful physical or emotional relationship or is someone making you feel afraid or unsafe? Denies 04/24/2023 Comments No Sex and Gender Information Value Date Recorded Sex Assigned at Not on file Legal Sex Female 9:05 PM DIRECTOR [employer]PORT [employer]PER[employer] Gender Identity Female 09/29/2022 11:39 PM [employer] Sexual Orientation Straight 09/29/2022 11 :39 PM DIRECTOR [employer]PER[employer] Obstetrics History Para Term AB IAB SAB Ectopic Multiple Livin g Live Births 0 0 0 0 0 0 0 0 0 0 0 Last Filed Vital Signs Vital Sign Reading Time Taken Comments Blood Pressure 128/78 03/22/2024 2:41 PM CDT Pulse 78 03/22/2024 2:41 PM CDT Temperature 36.3 C (97.3 F) 03/22/2024 2:41 PM CDT Respiratory Rate 20 03/22/2024 2:41 PM CDT Oxygen Saturation 98% 03/22/2024 2:41 PM CDT Inhaled Oxygen Concentration - - Weight 124.7 kg (275 lb) 03/22/2024 2:41 PM CDT Height 172.7 cm (5' 8) 03/22/2024 2:41 PM CDT Body Mass Index 41.81 03/22/2024 2:41 PM CDT Plan of Treatment Health Maintenance Due Date Last Done Comments Hepatitis C Screening 1995 Varicella Vaccines (1 of 2 - 13+ 2-dose series) 2008 Pneumococcal vaccine <65 (1 of 2 - PCV) 2014 Cervical Cancer Screening 10/05/2022 10/05/2021, 03/2018 Depression Screening 03/22/2025 03/22/2024, 01/20/2023, 12/31/2021, Additional history exists Regular Well Visit/Exam 18-64 03/22/2025 03/22/2024, 01/20/2023, 12/05/2022, Additional history exists Influenza Vaccine (Season Ended) 2025 DTaP/Tdap/Td Vaccine (8 - Td or Tdap) 12/30/2025 12/31/2015, 03/23/2010, 05/03/2000, Additional history exists Hepatitis B Screening Completed 04/18/1996 , 1995, 1995 HPV Vaccines Aged Out No longer eligi ble based on patient's age to complete this topic Procedures Procedure Name Priority Date/Time Associated Diagnosis Comments SCAN - LABS 11/12/2024 PAP WITH REFLEX TO HIGH RISK HPV Routine 10/05/2021 3:54 PM DIRECTOR AIRPORT OPERATIONS Encounter for annual routine gynecological examination from Last 3 Months or Most Recently Relevant to Health Maintenance Results * SCAN - LABS (11/12/2024) us Galen Aguiar MD Final Resu lt * Pap with reflex to High Risk HPV (10/05/2021 3:54 PM DIRECTOR AIRPORT OPERATIONS) Thin prep (Pap test) 10/05/2021 3:54 PM DIRECTOR [employer]PORT [employer]PERATIONS 10/06/2021 3:54 PM DIRECTOR [employer]PORT OPERATIONS Narrative PATHOLOGY [facility] - 10/11/2021 1:35 PM DIRECTOR AIRPORT OPERATIONS [facility] Department of Pathology [address] [place], [place] [id number] Final Report Note to Patients: This report may contain a detailed description of human tissue sent by a health care provider to the laboratory for pathologic evaluation. The content of this report is essential for diagnosis and may provide important critical findings. This information may be unfamiliar to patients to review without a medical professional present. It is advised that the patient review this report in the presence of a health care provider who can answer questions and explain the details. Patient Name: ARELIS SHELTON Address: [address] [place] [address] Gender: F : 1995 (Age: 26) Service: Laboratory Location: Hospital #: [id number] Patient Type: [facility] SPECIMEN Taken: 10/05/2021 Received: 10/06/2021 Accessioned:: 10/07/2021 Reported: 10/11/2021 Phys[facility]): [facility] Diagnosis: Source of Specimen: Imaged Thinprep Pap Test w/ Reflex HPV - Insurance Job Titles Cytologic Material Specimen Adequacy: - Satisfactory for evaluation; endocervical/transformation zone component present - This case was rejected by computer assisted technology and was manually screened by a oil well directional surveyor General Category: - Negative for intraepithelial lesion or malignancy TARI Larson(ASCP) Report Electronically Reviewed and Signed Out By TARI Larson(ASCP) 10/11/2021 13:35:30 Specimen(s) Received: A: Imaged Thinprep Pap Test w/ Reflex HPV - Insurance Job Titles Cytologic Material Clinical History: Last Menstrual Period: 09/25/21 Menstrual History: Previous Negative Pap: 03/21/18 The Pap test is a screening test used to aid in the detection of cervical cancer and its precursors. It should not be the sole means by which malignant and premalignant lesions are diagnosed. Both false negative and false positive results may occur. It also has poor sensitivity for the detection of endometrial lesions and should not be used to evaluate suspected endometrial abnormalities. For these reasons it is most important to obtain Pap tests at regular intervals. The performance characteristics of some immunohistochemical stains, fluorescence in-situ hybridization tests and immunophenotyping by flow cytometry cited in this report (if any) were determined by the Surgical Pathology Department at [facility] as part of an ongoing quality assurance monitor body program and in compliance with federally mandated regulations drawn from the Clinical Laboratory Improvement Act of 1988 (CLIA '88). Some of these tests rely on the use of analyte specific reagents and are subject to specific labeling requirements by the US Food and Drug Administration. Such diagnostic tests may only be performed in a facility that is certified by the Department of Health and Human Services as a high complexity laboratory under CLIA '88. The FDA has determined that such clearance or approval is not necessary. This test is used for clinical purposes. It should not be regarded as investigational or for research. Nevertheless, federal rules concerning the medical use of analyte specific reagents require that the following disclaimer be attached to the report: This test was developed and its performance characteristics determined by the Surgical Pathology Department [facility]. It has not been cleared or approved by the U. S. Food and Drug Administration. Carmita Levy NP LAB CYTOLOGY ORDERABLES Final Re sult PATHOLOGY [facility] from Last 3 Months or Most Recently Relevant to Health Maintenance Insurance [place] Advance Directives For more information, please contact: [phone] * Full Code (Latest Code Status on File) Date Activated Date Inactivated Comments 04/24/2023 9:46 AM 04/26/2023 8:37 PM Care Teams Portfolio Architect Relationship Specialty Start Date End Date Berny Dhillon DO [facility] [address] [address] PCP - General Family Medicine 02/11/19 Velasquez Ty MD [address] [facility] [address] Consulting Physician Pain Management 03/23/23
--- OUTSIDE RECORDS SUMMARY | 2025-01-13 07:15 | XMS_ITS | Clinical Summary ---
Author Organization [facility] Address [address] [place] [address] Phone Care Team Providers Care Customer Account Manager Name Role Phone Berny Dhillon DO Primary Care Provider [phone] Allergies Active Allergy Reactions Criticality Noted Date Comments Adhesive Tape-Silicones Rash Low 12/29/2020 Redness Sudafed Cough Confusion High 05/07/2012 Sulfa (Sulfonamide Antibiotics) Rash Low 03/14 Medications [id number]-sl on-folic acid-dha (Prena1 Cat) 30-1.4-200 mg capsule,IR & delay rel,biphase AFTERNOON Active lamoTRIgine (LaMICtal) 100 mg tablet TAKE 1 TABLET BY MOUTH TWICE A DAY 09/08/19 21 Active spironolacton e (ALDACTONE) 25 mg tablet 50 mg 2 times daily. 09/08/19 21 Active albuterol HFA 90 mcg inhaler Take 2 Puffs by inhalation every 6 hours as needed for Shortness of Breath. 6.7 Gram 2 10/30/19 21 Active cyclobenzapri ne (FLEXERIL) 5 mg Tablet Take 5 mg by mouth 3 times daily as needed for Spasm. Active terbinafine HCL (LamISIL) 250 mg tablet Take 250 mg by mouth daily. TO BE STOPPED ON 12/23/2020 Active semaglutide (Rybelsus) 3 mg Tablet Take 3 mg by mouth daily. 12/23/19 21 Active terbinafine HCL (LamISIL) 250 mg tablet Take one tablet by mouth twice a day for 1 week every month (pulse therapy) 42 Tablet 1 2 6:41 PM CDT 01/01/20 22 Active benzonatate (TESSALON) 100 mg capsule Take 1 Capsule (100 mg) by mouth 3 times daily as needed for cough. 42 Capsule 2 6:41 PM CDT 01/01/20 22 Active PNV,calcium 58-ibwq-eguvr acid (PREPLUS) 27 mg iron- 1 mg Tablet Take 1 Tablet by mouth daily. 30 Tablet 11 2 7:29 PM CDT 01/04/20 22 Active diazePAM (VALIUM) 10 mg tablet Take 1 tablet by mouth 30 minutes prior to procedure. 1 Tablet 2 6:51 PM CDT 01/04/20 22 Active LORazepam (ATIVAN) 0.5 mg tablet Take 1 tablet by mouth 15 minutes before botox; if still anxious, take an additional tablet. 2 Tablet 2 4:57 PM CDT 01/07/20 22 Active gabapentin (NEURONTIN) 100 mg capsule Take 1 Capsule (100 mg) by mouth 3 times daily. 90 Capsule 2 1:04 PM CDT 01/25/20 22 Active nortriptyline (PAMELOR) 25 mg capsule Take 1 Capsule (25 mg) by mouth 2 times daily. 60 Capsule 2 5:31 PM CDT 02/08/20 22 Active bethanechol (URECHOLINE) 10 mg tablet Take 1 Tablet (10 mg) by mouth 3 times daily. 90 Tablet 1 02/17/20 22 Active mupirocin (BACTROBAN) 2 % Ointment APPLY TO AFFECTED AREA THREE TIMES DAILY. 22 Gram 2 6:05 PM CDT 02/17/20 22 Active spironolacton e (ALDACTONE) 100 mg tablet Take 1 Tablet (100 mg) by mouth 2 times daily before meals. 180 Tablet 1 02/29/20 22 Active Clindamycin-B enzoyl Peroxide (Duac) 1.2 %(1 % base) -5 % Gel Apply to face every morning for acne 45 Gram 2 03/09/20 22 Active tretinoin (RETIN-A) 0.1 % Cream Apply to face nightly for acne 45 Gram 2 5:46 PM CDT 03/09/20 22 Active norethindrn a-e estradiol-iro n (LOESTRIN FE) 1 mg-20 mcg (21)/75 mg (7) tablet Take 1 Tablet by mouth daily. 84 Tablet 4 3 2:04 PM CDT 09/09/19 23 Active baclofen (LIORESAL) 10 mg tablet Take 1 Tablet (10 mg) by mouth 2 times daily. 90 Tablet 1 3 3:02 PM CDT 08/16/19 23 Active spironolacton e (ALDACTONE) 100 mg tablet Take 1 Tablet (100 mg) by mouth 2 times daily before meals 180 Tablet 1 3 7:11 PM CDT 08/20/19 23 Active Aluminum Chloride in Alcohol (Xerac AC) 6.25 % Solution APPLY TOPICALLY DAILY IN THE MORNING DIRECTED 120 mL 2 3 11:29 AM REGIONAL ENGINEER 08/30/19 23 Active metFORMIN (GLUCOPHAGE XR) 500 mg Extended Release 24 hour tablet Take 1 Tablet (500 mg) by mouth daily at dinner 90 Tablet 1 3 11:29 AM REGIONAL ENGINEER 08/30/19 23 Active nortriptyline (PAMELOR) 25 mg capsule Take 1 Capsule (25 mg) by mouth 2 times daily before meals. 180 Capsule 3 7:11 PM CDT 08/09/20 22 Active terbinafine HCL (LamISIL) 250 mg tablet TAKE ONE TABLET BY MOUTH TWICE DAILY FOR 1 WEEK EVERY MONTH 14 Tablet 07/04/20 22 Active spironolacton e (ALDACTONE) 100 mg tablet Take 1 Tablet (100 mg) by mouth 2 times daily before meals. 180 Tablet 1 08/30/19 23 Active PNV,calcium 17-naqz-iyupm acid (M-Olga Lidia Plus) 27 mg iron- 1 mg Tablet TAKE ONE TABLET BY MOUTH ONCE DAILY 210 Tablet 01/04/20 22 Active terbinafine HCL (LAMISIL AT) 1 % Cream APPLY TOPICALLY TO AFFECTED AREA TWICE DAILY 30 Gram 3 05/24/20 22 Active semaglutide (Rybelsus) 3 mg Tablet Take 1 Tablet (3 mg) by mouth daily in the morning. 30 Tablet 04/12/20 22 Active ketoconazole (NIZORAL) 2 % Cream Apply to the affected area(s) of left great toenail once daily. 60 Gram 3 2:04 PM CDT 11/15/19 23 Active hmjyjbsn53-wq on-folic acid-dha (Prena1 Cat) 30-1.4-200 mg capsule,IR & delay rel,biphase Take 1 capsule by mouth daily. 30 Each 11 01/20/20 23 Active predniSONE (DELTASONE) 10 mg tablet Take 1 Tablet (10 mg) by mouth daily for 5 days. 5 Tablet 3 4:30 PM CDT 01/20/20 23 Active elagolix (Orilissa) 150 mg Tablet Take 1 TABLET (150 mg ) by mouth daily in the morning. 96 Tablet 3 5:55 PM CDT 01/21/20 23 Active PNV#16-Iron Fum & PS-FA-OM-3 (Josué-C DHA) 35-1-200 mg Capsule Take 1 Capsule by mouth daily. 30 Capsule 02/28/20 23 Active haxiqprr78-la on-folic acid-dha (Prena1 Cat) 30-1.4-200 mg capsule,IR & delay rel,biphase Take 1 Capsule by mouth daily. 30 Each 11 03/16/20 23 Active elagolix (Orilissa) 150 mg Tablet Take 1 tablet by mouth daily in the morning. 96 Tablet 1 3 5:37 PM REGIONAL ENGINEER 03/21/20 23 Active spironolacton e (ALDACTONE) 100 mg tablet Take 1 Tablet (100 mg) by mouth 2 times daily before meals. 180 Tablet 1 4 3:37 PM REGIONAL ENGINEER 03/21/20 23 Active amoxicillin-c lavulanate (AUGMENTIN) 875-125 mg tablet Take 1 tablet by mouth 2 (two) times a day for 10 days 20 Tablet 3 7:21 PM CDT 03/29/20 23 Active propranoloL (INDERAL LA) 80 mg Long Acting 24 hour capsule Take 1 Capsule (80 mg) by mouth daily. 30 Capsule 11 4 6:47 PM CDT 06/01/20 23 Active ZOLMitriptan (ZOMIG) 5 mg tablet TAKE ONE TABLET BY MOUTH AT THE ONSET OF MIGRAINE. MAY REPEAT ONE TABLET IN 2 HOURS NEEDED. 16 Tablet 5 4 5:20 PM CDT 06/01/20 23 Active lancets (Microlet Lancet) Use to check sugars twice daily. 180 Each 3 4 6:35 PM CDT 06/02/20 23 Active ketoconazole (NIZORAL) 2 % Cream APPLY TO THE AFFECTED AREA(S) OF TOENAILS BY TOPICAL ROUTE ONCE DAILY 60 Gram 2 4 6:49 PM REGIONAL ENGINEER 06/26/20 23 Active PNV,calcium 06-htnt-rxkbe acid (WesTab Plus) 27 mg iron- 1 mg Tablet TAKE 1 TABLET BY MOUTH ONCE DAILY 30 Tablet 11 3 7:28 PM REGIONAL ENGINEER 08/10/20 23 Active benzonatate (TESSALON) 100 mg capsule Take 1 capsule (100 mg total) by mouth 3 (three) times a day as needed for cough 42 Capsule 4 6:49 PM REGIONAL ENGINEER 08/11/20 23 Active propranoloL (Inderal LA) 80 mg Long Acting 24 hour capsule Take 1 capsule by mouth nightly 30 Capsule 09/22/19 24 Active blood sugar diagnostic (Contour Next Test Strips) Strip USE 1 TEST STRIP DAILY 100 Each 12 5 7:14 PM REGIONAL ENGINEER 10/01/19 24 Active dexAMETHasone (DECADRON) 1 mg Tablet Take 1 Tablet (1 mg) by mouth daily after 10pm FOR DST. 1 Tablet 4 6:19 PM CDT 10/27/19 24 Active amoxicillin (AMOXIL) 500 mg capsule Take 1 capsule ORAL route every 8 hours for 10 days 30 Capsule 4 7:19 PM CDT 11/29/19 24 Active predniSONE (DELTASONE) 20 mg tablet Take 3 tablets ORAL route once daily for 5 days 15 Tablet 4 7:19 PM CDT 11/29/19 24 Active ZOLMitriptan (ZOMIG) 5 mg tablet Take 1 tablet (5 mg total) by mouth once as needed for migraine for up to 3 doses 3 Tablet 4 3:59 PM CDT 12/14/19 24 Active mupirocin (BACTROBAN) 2 % Ointment Apply 3 times daily as needed to open areas on scalp 22 Gram 2 5 7:14 PM REGIONAL ENGINEER 01/24/20 24 Active ybxatyuv20-hd on-folic acid-dha (VitaPearL) 30-1.4-200 mg capsule,IR & delay rel,biphase Take 1 Capsule by mouth daily. 90 Each 1 02/22/20 24 Active baclofen (LIORESAL) 10 mg tablet Take 1 Tablet (10 mg) by mouth daily. 90 Tablet 1 5 7:14 PM REGIONAL ENGINEER 05/31/20 24 Active nortriptyline (PAMELOR) 25 mg capsule TAKE 1-2 CAPSULES BY MOUTH NIGHTLY NEEDED. 180 Capsule 1 5 3:02 PM CDT 07/08/20 24 Active ZOLMitriptan (ZOMIG) 5 mg tablet TAKE ONE TABLET BY MOUTH AT THE ONSET OF MIGRAINE. MAY REPEAT ONE TABLET IN 2 HOURS NEEDED. 16 Tablet 5 5 4:26 PM CDT 07/14/20 24 Active gabapentin (NEURONTIN) 100 mg capsule Take 2 Capsules (200 mg) by mouth 3 times daily. 540 Capsule 1 5 11:57 AM CDT 08/13/20 24 Active spironolacton e (ALDACTONE) 100 mg tablet Take 1 tablet (100 mg total) by mouth 2 (two) times a day 180 Tablet 1 5 6:06 PM CDT 11/15/19 25 Active semaglutide, weight loss, (Wegovy) 0.25 mg/0.5 mL Pen Injector Inject 0.5 mL (0.25 mg) by subcutaneous injection every 7 days. 2 mL 11/21/19 25 Active semaglutide, weight loss, (Wegovy) 0.5 mg/0.5 mL Pen Injector Inject 0.5 mL (0.5 mg) by subcutaneous injection every 7 days. 6 mL 1 11/21/19 25 Active elagolix (Orilissa) 150 mg Tablet Take 1 tablet by mouth daily. 84 Tablet 3 5 4:26 PM CDT 12/03/19 25 Active Phentermine 15 mg Capsule Take 1-2 Capsules (15-30 mg) by mouth daily in the morning. 180 Capsule 1 5 4:26 PM CDT 12/24/19 25 Active propranoloL (INDERAL LA) 80 mg Long Acting 24 hour capsule Take 1 capsule (80 mg total) by mouth daily. 90 Capsule 5 5 4:26 PM CDT 12/24/19 25 Active norethindrone acetate (AYGESTIN) 5 mg Tablet Take 1 Tablet (5 mg) by mouth daily. 30 Tablet 2 5 4:26 PM CDT 12/30/19 25 Active Phentermine 15 mg Capsule Take 1-2 Capsules (15-30 mg) by mouth daily in the morning. 180 Capsule 1 5 12:01 PM REGIONAL ENGINEER 02/22/20 24 025 Discontinued(R eorder) propranoloL (INDERAL LA) 80 mg Long Acting 24 hour capsule Take 1 capsule (80 mg total) by mouth daily. 90 Capsule 1 5 4:57 PM REGIONAL ENGINEER 04/08/20 24 025 Discontinued norethindrone acetate (AYGESTIN) 5 mg Tablet Take 1 (one) tablet by mouth once daily 30 Tablet 2 5 5:09 PM REGIONAL ENGINEER 09/27/19 25 025 Discontinued(R eorder) Active Problems Patient Care Coordination No te Formatting of this note migh t be different from the original. 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 Pilonidal abscess 03/29/2015 UTI (lower urinary tract infection) 10/19/2012 Overview (10/19/2012): possible Urinary incontinence 05/07/2012 Post-op pain Encounters Date Type Department Care Team Description 11/12/2024 External Device Data [facility] ABSTRACTION Provider, Abstract 10/19/2024 External Device Data [facility] ABSTRACTION Provider, Abstract 10/18/2024 External Device Data [facility]STRACTION Provider, Abstract 10/16/2024 External Device Data [facility]STRACTION Provider, Abstract from Last 3 Months Immunizations Immunization Administration Dates Next Due (ACTHIB/HIBERIX)(2 MOS-5 YRS /6 WKS-4 YRS) HAEMOPHILUS INFLUENZAE TYPE B VACCINE (HIB), PRP-T CONJUGATE, 4 DOSE, 0.5 ML IM 10/25/1996 (ADACEL/BOOSTRIX)(10 YR UP) TDAP VACCINE, 0.5ML, IM 12/31/2015,03/23/2010 (INFANRIX)(6 WKS-6 YRS) DIPT HERIA, TETANUS TOXOIDS, AND ACCELLULAR PERTUSSIS VACCINE (DTAP), 0.5 ML IM 05/03/2000,02/21/1997,02/09/1996,1995,1995 (IPOL)(6 WKS AND UP) POLIOVI COOPER VACCINE, INACTIVATED (IPV), 3 DOSE, SUBCUT OR IM 02/21/1997,07/23/1996,1995,1995 (M-M-R II/PRIORIX)(12 MO UP) MEASLES, MUMPS AND RUBELLA VIRUS VACCINE, 0.5 ML IM/SUBCUT 05/03/2000,10/25/1996 (RECOMBIVAX HB/ENGERIX-B)(0- 19 YRS) HEPATITIS B VACCINE 5 MCG/0.5 ML OR 10 MCG/0.5 ML PED OR ADOL 3 DOSE (PF), IM 1995 Hepatitis B Vaccine 04/18/1996,1995 Family History Medical History Relation Name Comments Hypertension Father Yogi Shelton Healthy Mother Relation Name Status Comments Father Yogi Shelton Alive Mother Alive Social History Tobacco Use Types Packs/Day Years Used Date Smoking Tobacco: Never Smokeless Tobacco: Never Tobacco Cessation:Counseling Given: Not Answered Alcohol Use Standard Drinks/Week Comments No 0 (1 standard drink = 0.6 oz pur e alcohol) Comments No Sex and Gender Information Value Date Recorded Sex Assigned at Not on file Legal Sex Female 5:58 AM REGIONAL ENGINEER Gender Identity Not on file Sexual Orientation Not on file Occupation Industry Job Start Date Job End Date Not on file Not on file Not on file Not on file Last Filed Vital Signs Vital Sign Reading Time Taken Comments Blood Pressure 118/82 09/23/2022 2:03 PM REGIONAL ENGINEER Pulse 64 09/23/2022 2:03 PM REGIONAL ENGINEER Temperature 36.3 C (97.4 F) 01/19/2021 3:52 PM CDT Respiratory Rate 16 01/01/2021 4:17 PM CDT Oxygen Saturation 97% 09/23/2022 2:03 PM REGIONAL ENGINEER Inhaled Oxygen Concentration - - Weight 130.6 kg (288 lb) 09/23/2022 2:03 PM REGIONAL ENGINEER Height 172.7 cm (5' 8) 09/23/2022 2:03 PM REGIONAL ENGINEER Body Mass Index 43.79 09/23/2022 2:03 PM REGIONAL ENGINEER Plan of Treatment Health Maintenance Due Date Last Done Comments HPV/Cotest (21-29) 2016 CERVICAL CANCER SCREENING 07/30/2022 PAP SMEAR 07/30/2022 07/30/2019, 03/21/2018 INFLUENZA VACCINE (#1) 2024 DTAP/TDAP/TD VACCINES (8 - Td or Tdap) 12/30/2025 12/31/2015, 03/23/2010, 05/03/2000, Additional history exists HEPATITIS B VACCINES Completed 04/18/1996, 1995, 1995 HPV VACCINES Aged Out No longer eligi ble based on patient's age to complete this topic Medical Devices Implanted Type Area Cdl Company Driver Device Identifier Shelf Expiration Date Model / Serial / Lot Surgical Marker Dental Retainer Of Bottom Teeth Insurance [facility] MEDICAID RX [employer] (INTERNAL) [facility] RX [employer] Commercial RX [employer] Commercial Advance Directives For more information, please contact: [phone] * Full Code (Latest Code Status on File) Date Activated Date Inactivated Comments 05/27/2015 12:35 PM 05/27/2015 8:09 PM Care Teams Customer Account Manager Relationship Specialty Start Date End Date Berny Dhillon DO PCP - General Family Practice 11/19/20
--- OUTSIDE RECORDS SUMMARY | 2025-01-13 07:15 | XMS_ITS ---
Author Organization [employer] [facility] Address [address] [address] Care Team Providers Care Seater Assembler Name Role Phone Misty Woods Primary Care Provider REASON FOR VISIT 3 MONTH F/U VENANCIO Medications Medication SIG (Take, Route, Frequency, Duration) Notes Start Date End Date Status VITAPEARL WITH DHA MULTIVITAMINS WITH FOLIC ACID 1.4 MG 1 CAP(S) ORALLY ONCE A DAY for 90 DAYS *Please review for potential replacement for e-prescription and drug interaction check* 02/22/2024 Active Phentermine HCl 15 MG take up to 2 caps orally once a day (in the morning) for 90 days 02/22/2024 Active Phentermine HCl 15 MG 1 cap(s) orally once a day (in the morning) for 90 days one tablet daily 10/30/2023 Active Orilissa 150 MG 1 tab(s) orally once a day for 90 days 11/21/2023 Active Baclofen 10 MG 1 tab(s) orally daily for 90 days 05/31/2024 Active Nortriptyline HCl 25 MG 1 cap(s) orally 3 times a day for 30 day(s) as needed 10/27/2023 Active Spironolactone 100 MG for 90 Days Active dexAMETHasone 1 MG 1 tab(s) orally once for 1 days Please instruct patient to take after 10pm for DST Active Gabapentin 100 MG for 90 Days as needed Active Baclofen 10 MG for 45 Days as needed daily Active Zomig 5 MG 1 tab(s) orally once a day Active AYGESTIN ACETATE 5 MG 1 TAB(S) ORALLY ONCE A DAY *Please review for potential replacement for e-prescription and drug interaction check* Active Propranolol HCl 80 MG 1 TAB(S) ORALLY 2 TIMES A DAY for 30 DAY(S) *Please review and pick correct strength-formulati on from Medispan options. If intended option is not shown, discontinue and re-order from Quick Search* 10/27/2023 Active Vital Signs Blood pressure systolic 130 mm Hg 09/06/19 25 Blood pressure diastolic 82 mm Hg 025 Heart Rate 72 /min 09/06/2024 Respiratory Rate 12 /min 09/06/2024 Height 69 in 09/06/2024 Weight 287.8 lbs 09/06/2024 BMI 42.5 kg/m2 09/06/2024 Encounters Encounter Location Date Provider Diagnosis [facility] - Misty Woods [address] [place] [address] 09/06/2024 Misty Chuck Polycystic ovarian syndrome E28.2 ; Endometriosis, unspecified N80.9 and Obesity, unspecified E66.9 Assessments Encounter Date Diagnosis (ICD Code) Assessment Notes Treatment Notes Treatment Clinical Notes Section Notes 09/06/2024 Polycystic ovarian syndrome (ICD-10 - E28.2) 09/06/2024 Endometriosis, unspecified (ICD-10 - N80.9) 09/06/2024 Obesity, unspecified (ICD-10 - E66.9) 09/06/2024 Other Assessment and Plan: Polycystic Ovary Syndrome (PCOS)Await pending testosterone resultsContinue current medications: Orilissa, phentermine 15mg, spironolactoneMonitor weight and blood pressure Fatigue and Sleep DisturbancesComplete dexamethasone suppression testPatient to call clinician once test is completed for prompt reviewIf cortisol levels are abnormal, order adrenal CT scanDiscuss potential treatment options based on test results at follow-up appointment HeadachesContinue propranolol for headache preventionContinue zolmitriptan as needed for acute headaches Neuropathic PainContinue nortriptylineContinue gabapentin as needed Metabolic MonitoringContinue routine metabolic monitoring Follow-up:Encourage patient to contact the clinic once tests are completed or if there are any concerns with current treatment regimens. Spent 25 minutes preparing to see the patient (ex review of tests/chart), obtaining and / or reviewing separately obtained history, performing a medically appropriate examination and/or evaluation, counseling and educating the patient/family/caregiver , ordering medications, tests, or procedures, referring and communicating with other health customer care associate, documenting clinical information in the electronic or other health record, independently interpreting results and communicating results to the patient/family/caregiver and care coordinating patient plan. Patient alert and oriented x 4 and aware of discussion noted above and in agreeance to plan in management of PCOS, weight management, concern for hypercortisolism and management of headaches and endometriosis. Due to the nature of telemedicine, the ability to do physical assessment was limited to what can be accomplished by patient directed telehealth visit based on instruction. Those limits are understood by the patient and myself. Impression is based on history, available information, and physical findings accomplished with telehealth visit. Chronic disease/problem list/ medication list reviewed and updated where indicated. Discussed diagnosis, plan including risks, benefits, and options of treatment. Advised to call for new, worsening, or persistent symptoms. Level of patient risk was of moderate complexity due to the documented nature of presentation, the information assessment required and the nature of the development of an evaluation and treatment plan as documented. PMH, FHx, SHx, Surgical Hx, Quality management review carried out and addressed as documented today as part of this visit. Medication list was reviewed and adjusted as indicated. Medication requiring a refill was addressed. Risk and benefits of any new medications were discussed and all questions were answered. Plan Of Treatment Treatment Notes Assessment Notes Other Assessment and Plan: Polycystic Ovary Syndrome (PCOS)Await pending testosterone resultsContinue current medications: Orilissa, phentermine 15mg, spironolactoneMonitor weight and blood pressure Fatigue and Sleep DisturbancesComplete dexamethasone suppression testPatient to call clinician once test is completed for prompt reviewIf cortisol levels are abnormal, order adrenal CT scanDiscuss potential treatment options based on test results at follow-up appointment HeadachesContinue propranolol for headache preventionContinue zolmitriptan as needed for acute headaches Neuropathic PainContinue nortriptylineContinue gabapentin as needed Metabolic MonitoringContinue routine metabolic monitoring Follow-up:Encourage patient to contact the clinic once tests are completed or if there are any concerns with current treatment regimens. Spent 25 minutes preparing to see the patient (ex review of tests/chart), obtaining and / or reviewing separately obtained history, performing a medically appropriate examination and/or evaluation, counseling and educating the patient/family/caregiver, ordering medications, tests, or procedures, referring and communicating with other health customer care associate, documenting clinical information in the electronic or other health record, independently interpreting results and communicating results to the patient/family/caregiver and care coordinating patient plan. Patient alert and oriented x 4 and aware of discussion noted above and in agreeance to plan in management of PCOS, weight management, concern for hypercortisolism and management of headaches and endometriosis. Due to the nature of telemedicine, the ability to do physical assessment was limited to what can be accomplished by patient directed telehealth visit based on instruction. Those limits are understood by the patient and myself. Impression is based on history, available information, and physical findings accomplished with telehealth visit. Chronic disease/problem list/ medication list reviewed and updated where indicated. Discussed diagnosis, plan including risks, benefits, and options of treatment. Advised to call for new, worsening, or persistent symptoms. Level of patient risk was of moderate complexity due to the documented nature of presentation, the information assessment required and the nature of the development of an evaluation and treatment plan as documented. PMH, FHx, SHx, Surgical Hx, Quality management review carried out and addressed as documented today as part of this visit. Medication list was reviewed and adjusted as indicated. Medication requiring a refill was addressed. Risk and benefits of any new medications were discussed and all questions were answered. Next Appt Details Follow Up: 2 Months, Reason: labwork/monitoring Progress Notes * Arelis SHELTONDOB: [birth year] (29 yo F)Acc No.[id number]:09/06/2024 Progress Notes Patient: Arelis SORENSON Provider: Zhanna Woods MD :1995 A ge:29 Y S ex:Female Date:09/06/2024 Phone: Address:[address] [place] [address], [facility] Subjective: * Chief Complaints: * 1 . 3 MONTH F/U VENANCIO. * HPI: I nterval Hx: 29 yo female calls in today to initiate telehealth visit to discuss progress and management of PCOS, obesity, vit D def, weight management. Verbal consent provided by patient to proceed with this visit. This visit was performed in office via provider and patient located in primary care office with real time audio with video. Arelis, a patient with a history of PCOS, reports trouble sleeping, daytime somnolence, and constant fatigue. Her current medications include Orilissa, phentermine, spironolactone, propranolol, nortriptyline, gabapentin, and zolmitriptan. Recent lab results show low DHEAS and normal thyroid function. A dexamethasone suppression test has been ordered to evaluate cortisol levels. Her weight is 287.8 lbs, and blood pressure remains in the 130s. She will continue her current medications and routine metabolic monitoring. Patient reports experiencing trouble sleeping and daytime somnolence. She describes feeling constantly fatigued. No worsening of anxiety or depression noted. Patient denies any recent medication changes. Current medications include Orilissa, phentermine 15 mg, spironolactone, propranolol for headaches, nortriptyline, gabapentin as needed, and zolmitriptan for headaches. Patient's recent weight is 287.8 lbs. No changes in diet reported. Blood pressure remains in the 130s. Patient denies palpitations or anxiety symptoms. Medical History - PCOS (Polycystic Ovary Syndrome) Current and Past Medications and Supplements - Orilissa - Phentermine 15mg - Spironolactone - Propranolol (for headaches) - Nortriptyline - Gabapentin (as needed) - Zolmitriptan (for headaches) Social History - Diet: No recent changes reported - Physical activity: Reports constant fatigue and falling asleep during the day - Weight: 287.8 (units not specified, presumably pounds) Review of Systems - General: Sometimes trouble sleeping, falling asleep during the day, constantly tired - Cardiovascular: No palpitations - Psychiatric: No worsening anxiety or depression labs from 09/07 a1c 5.2% glucose 83 mg/dL Cr normal mag 2.0 mg/dL TSH of 1.33 uIU/ml FT4 of 1.14 ng/dL B12 575 pg/mL FT3 of 3.3 pg/ML LFT normal dheas low 74.5 ug/dL testosterone pending acth pending DST not done yet. * ROS: C ONSTITUTIONAL: weight gain y es. l oss of appetite y es. ? D ERMATOLOGY: rash y es, i tcing. n ail problems y es, H air and nail changes. E NDOCRINOLOGY: fatigue y es. e xcessive thirst y es. c old intolerance y es. h eat intolerence y es. A LLERGY: stuffy nose y es. U ROLOGY: frequent urination y es. u rinary incontinence y es. M USCULOSKELETAL: back pain y es. * Medical History: * Medications: T aking Zomig(ZOLMitriptan) 5 MG Tablet 1 tab(s) orally once a day , Taking AYGESTIN ACETATE 5 MG TABLET 1 TAB(S) ORALLY ONCE A DAY , Notes to Pharmacist: *Please review for potential replacement for e-prescription and drug interaction check*, Taking Propranolol HCl 80 MG TABLET 1 TAB(S) ORALLY 2 TIMES A DAY , Notes to Pharmacist: *Please review and pick correct strength-formulation from [employer] options. If intended option is not shown, discontinue and re-order from Quick Search*, Taking Nortriptyline HCl 25 MG Capsule 1 cap(s) orally 3 times a day , Notes to Pharmacist: as needed, Taking Spironolactone 100 MG Tablet , Taking Gabapentin 100 MG Capsule , Notes to Pharmacist: as needed, Taking Baclofen 10 MG Tablet , Notes to Pharmacist: as needed daily, Taking dexAMETHasone 1 MG Tablet 1 tab(s) orally once , Notes to Pharmacist: Please instruct patient to take after 10pm for DST, Taking Phentermine HCl 15 MG Capsule 1 cap(s) orally once a day (in the morning) , Notes to Pharmacist: one tablet daily, Taking Orilissa(Elagolix Sodium) 150 MG Tablet 1 tab(s) orally once a day , Taking VITAPEARL WITH DHA MULTIVITAMINS WITH FOLIC ACID 1.4 MG CAPSULE 1 CAP(S) ORALLY ONCE A DAY , Notes to Pharmacist: *Please review for potential replacement for e-prescription and drug interaction check*, Taking Phentermine HCl 15 MG Capsule take up to 2 caps orally once a day (in the morning) , Taking Baclofen 10 MG Tablet 1 tab(s) orally daily Objective: * Vitals: R R:12, HR:72, BP:130/82, Ht: 69, Wt:287.8, BMI: 42.5. * Examination: G eneral Examination: General n ormal, NAD, well nourished and hydrated, pleasant obese female. Neck, thyroid : s upple. Assessment: * Assessment: 1. P olycystic ovarian syndrome - E28.2 (Primary) 2 . E ndometriosis, unspecified - N80.9 3 . O besity, unspecified - E66.9 Plan: * Treatment: * Follow Up: 2 Months (Reason: labwork/monitoring) * Billing Information: * Visit Code: 88302 Office Visit, Est Pt., Level 4. Modifiers: 95 * Procedure Codes: * IT COMPLIANCE OFFICER Sign off status: Completed true * Provider: Zhanna Woods MD Date: 0 09/06/2024 Generated for Blairi bibi/Popeye/Roshniransmravi on: 0 01/13/2025 07:15 AM CDT History and Physical Notes * HPI (History of Present Illness) Category Sub-Category Detail Notes Category Not es Interval Hx 29 yo female calls in today to initiate telehealth visit to discuss progress and management of PCOS, obesity, vit D def, weight management. Verbal consent provided by patient to proceed with this visit. This visit was performed in office via provider and patient located in primary care office with real time audio with video. Areils, a patient with a history of PCOS, reports trouble sleeping, daytime somnolence, and constant fatigue. Her current medications include Orilissa, phentermine, spironolactone, propranolol, nortriptyline, gabapentin, and zolmitriptan. Recent lab results show low DHEAS and normal thyroid function. A dexamethasone suppression test has been ordered to evaluate cortisol levels. Her weight is 287.8 lbs, and blood pressure remains in the 130s. She will continue her current medications and routine metabolic monitoring. Patient reports experiencing trouble sleeping and daytime somnolence. She describes feeling constantly fatigued. No worsening of anxiety or depression noted. Patient denies any recent medication changes. Current medications include Orilissa, phentermine 15 mg, spironolactone, propranolol for headaches, nortriptyline, gabapentin as needed, and zolmitriptan for headaches. Patient's recent weight is 287.8 lbs. No changes in diet reported. Blood pressure remains in the 130s. Patient denies palpitations or anxiety symptoms. Medical History - PCOS (Polycystic Ovary Syndrome) Current and Past Medications and Supplements - Orilissa - Phentermine 15mg - Spironolactone - Propranolol (for headaches) - Nortriptyline - Gabapentin (as needed) - Zolmitriptan (for headaches) Social History - Diet: No recent changes reported - Physical activity: Reports constant fatigue and falling asleep during the day - Weight: 287.8 (units not specified, presumably pounds) Review of Systems - General: Sometimes trouble sleeping, falling asleep during the day, constantly tired - Cardiovascular: No palpitations - Psychiatric: No worsening anxiety or depression labs from 09/07 a1c 5.2% glucose 83 mg/dL Cr normal mag 2.0 mg/dL TSH of 1.33 uIU/ml FT4 of 1.14 ng/dL B12 575 pg/mL FT3 of 3.3 pg/ML LFT normal dheas low 74.5 ug/dL testosterone pending acth pending DST not done yet Examination Category Sub-Category Detail Notes Category Not es General Examination Neck, thyroid : supple General normal, NAD, well no urished and hydrated, pleasant obese female
--- OUTSIDE RECORDS SUMMARY | 2025-01-13 07:15 | XMS_ITS | Clinical Summary ---
Author Organization [facility] Address [address] [place] [address] Phone Care Team Providers Care Processing Assistant Name Role Phone Unavailable Primary Care Provider Unavailabl e Social History Tobacco Use Types Packs/Day Years Used Date Smoking Tobacco: Never Assessed Comments Unknown Sex and Gender Information Value Date Recorded Sex Assigned at Not on file Legal Sex Female 3:27 PM CDT Gender Identity Not on file Sexual Orientation Not on file Plan of Treatment Not on file
--- OUTSIDE RECORDS SUMMARY | 2025-01-13 07:15 | XMS_ITS | Encounter Summary ---
Author Organization [facility] Address [address] [place] [address] Care Team Providers Care Patient Financial Specialist Name Role Phone Berny Dhillon DO Primary Care Provider + Velasquez Ty MD Unavailable Encounter Details Date Type Department Care Team (Late st Contact Info) Description 05/17/2024 Orders Only [facility] Health Information Management [address] [place] [id number] Scanning, Provider Social History Tobacco Use Types Packs/Day Years [...] on file Legal Sex Female 9:05 PM PREP MANAGER Gender Identity Female 09/29/2022 11:39 PM PREP MANAGER Sexual Orientation Straight 09/29/2022 11 :39 PM PREP MANAGER documented as of this encounter Plan of Treatment Not on file documented as of this encounter Procedures Procedure Name Priority Date/Time Associated Diagnosis Comments SCAN - LABS 05/17/2024 documented in this encounter Results * SCAN - LABS (05/17/2024) us Provider Scanning Final Result documented in this encounter Visit Diagnoses Not on filedocumented in this encounter Care Teams Patient Financial Specialist Relationship Specialty Start Date End Date Berny Dhillon DO [address] [address] PCP - General Family Medicine 02/11/19 Velasquez Ty MD [address] [facility] [address] Consulting Physician Pain Management 03/23/23 documented as of this encounter
--- OUTSIDE RECORDS SUMMARY | 2025-01-13 07:15 | XMS_ITS | Encounter Summary ---
Author Organization [facility] Address [address] [place] [address] Care Team Providers Care Watermelon Inspector Name Role Phone Berny Dhillon DO Primary Care Provider [phone] Reason for Visit * Reason Onset Date Comments Medication Refill 01/29/2022 Encounter Details Date Type Department Care Team (Late st Contact Info) Description 01/29/[address] [facility] [address] [place] [address] Berny Dhillon DO [address] [address] Social History Tobacco Use Types Packs/Day Years Used Date Smoking Tobacco: Never Smokeless Tobacco: Never Alcohol Use Standard Drinks/Week Comments No 0 (1 standard drink = 0.6 oz pur e alcohol) Comments No Sex and Gender Information Value Date Recorded Sex Assigned at Not on file Legal Sex Female 5:58 AM CANDY CUTTER HAND Gender Identity Not on file Sexual Orientation Not on file Occupation Industry Job Start Date Job End Date Not on file Not on file Not on file Not on file documented as of this encounter Plan of Treatment Not on file documented as of this encounter Visit Diagnoses Not on filedocumented in this encounter Care Teams Watermelon Inspector Relationship Specialty Start Date End Date Berny Dhillon DO PCP - General Family Practice 11/19/20 documented as of this encounter
--- OUTSIDE RECORDS SUMMARY | 2025-01-13 07:15 | XMS_ITS | Patient Health Record ---
Author Organization [facility] Address [address] [address] Care Team Providers Care Core Baker Name Role Phone Misty Woods Primary Care Provider Migration, Provider Unavailable Unavailable Allergies Allergen (clinical drug ingredient) Drug/Non Drug Allergy documented on EMR Reaction Allergy Type Onset Date Status Substance with sulfonamide structure and antibacterial mechanism of action (substance) Sulfa Antibiotics Unknown Drug Allergy Active oxycodone oxyCODONE Unknown Drug Allergy Active Sudafed Unknown Drug Allergy Active Reason For Referral No Information Medications Medication SIG (Take, Route, Frequency, Duration) Notes Start Date End Date Status VITAPEARL WITH DHA MULTIVITAMINS WITH FOLIC ACID 1.4 MG 1 CAP(S) ORALLY ONCE A DAY for 90 DAYS *Please review for potential replacement for e-prescription and drug interaction check* 02/22/2024 Active Zomig 5 MG 1 tab(s) orally once a day Active Phentermine HCl 15 MG take up to 2 caps orally once a day (in the morning) for 90 days 02/22/2024 Active Phentermine HCl 15 MG 1 cap(s) orally once a day (in the morning) for 90 days one tablet daily 10/30/2023 Active Orilissa 150 MG 1 tab(s) orally once a day for 90 days 11/21/2023 Active Nortriptyline HCl 25 MG 1 cap(s) orally 3 times a day for 30 day(s) as needed 10/27/2023 Active Spironolactone 100 MG for 90 Days Active AYGESTIN ACETATE 5 MG 1 TAB(S) ORALLY ONCE A DAY *Please review for potential replacement for e-prescription and drug interaction check* Active Baclofen 10 MG 1 tab(s) orally daily for 90 days 05/31/2024 Active Propranolol HCl 80 MG 1 TAB(S) ORALLY 2 TIMES A DAY for 30 DAY(S) *Please review and pick correct strength-formulati on from [employer] options. If intended option is not shown, discontinue and re-order from Quick Search* 10/27/2023 Active dexAMETHasone 1 MG 1 tab(s) orally once for 1 days Please instruct patient to take after 10pm for DST Active Gabapentin 100 MG for 90 Days as needed Active Baclofen 10 MG for 45 Days as needed daily Active Problems Problem Type SNOMED Code ICD Code Onset Dates Problem Status W/U Status Risk Notes Problem Vitamin D deficiency (54284786) Vitamin D deficiency, unspecified (E55.9) Active confirmed Problem Obesity (422926523) Obesity, unspecified (E66.9) Active confirmed Problem Iron deficiency anemia (19453203) Iron deficiency anemia, unspecified (D50.9) Active confirmed Problem Polycystic ovary syndrome (disorder) (345274453) Polycystic ovarian syndrome (E28.2) Active confirmed Problem Chronic migraine without aura, non-intractable (003995755107551) Chronic migraine without aura, not intractable, without status migrainosus (G43.709) Active confirmed Problem Endometriosis (754598642) Endometriosis, unspecified (N80.9) Active confirmed Vital Signs Heart Rate 72 /min 09/06/2024 Respiratory Rate 12 /min 09/06/2024 Blood pressure diastolic 82 mm Hg 09/06/2024 Height 69 in 09/06/2024 Blood pressure systolic 130 mm Hg 09/06/2024 Weight 287.8 lbs 09/06/2024 BMI 42.5 kg/m2 09/06/2024 Encounters Encounter Location Date Provider Diagnosis [facility] - Misty Woods [address] [place] [address] 02/22/2024 Misty Woods Polycystic ovarian syndrome E28.2 ; Iron deficiency anemia, unspecified D50.9 and Obesity, unspecified E66.[address] [address] 06/29/2024 Provider Migration [facility] - Misty Woods [address] [place] [address] 09/05/2024 Misty Woods [facility] [address] [place] [address] 09/05/2024 Misty Woods [facility], [facility] - Misty FAMOCO [address] [place] [address] 09/06/2024 Misty Woods [facility], [facility] - Misty [place] [address] [place] [address] 09/06/2024 Misty Woods [facility], [facility] [place] [id number] [place] [address] 05/31/2024 Misty Woods Polycystic ovarian syndrome E28.2 ; Endometriosis, unspecified N80.9 ; Obesity, unspecified E66.9 ; Vitamin D deficiency, unspecified E55.9 and Other fatigue R53.83 [facility], [facility] Misty FAM[place] [id number] [place] [address] 09/06/2024 Misty Woods Polycystic ovarian syndrome E28.2 ; Endometriosis, unspecified N80.9 and Obesity, unspecified E66.9 [facility] Mist[place] [id number] [place] [address] 11/22/2024 Misty Woods [facility], [facility] [place] [id number] [place] [phone] 10/09/2024 Misty Chuck Assessments Encounter Date Diagnosis (ICD Code) Assessment Notes Treatment Notes Treatment Clinical Notes Section Notes 02/22/2024 Polycystic ovarian syndrome (ICD-10 - E28.2) patient cannot tolerate metformin-discussed natural insulin sensitizers. continue spironolactone 100 mg twice daily as patient tolerating well. In multiple studies a moderate amount of daily exercise increases levels of IGF-1 binding protein and decreases levels of IGF-1 by 20%. Modest weight loss of 2-5% of total body weight can help restore ovulatory menstrual periods in obese patients with PCOS. A decrease of 300-500 calories daily, along with 150 minutes of exercise per week, can cause ovulation. Patient was encouraged to continue to maintain diet but not to go toward an extreme form of ketogenic diet. Recommended up to 60 grams of carbs a day split into 6 small 10 gram carb meals or three larger 20 gram carb meals in addition to up to 90 grams of protein daily split into 15-20 grams for 5-6 smaller meals. The recommended diet should be one of which she can incorporate on a daily basis that will not modulate her lifestyle- discussed a diet of increased fiber; decreased refined carbohydrates, trans fats, and a saturated fats with focus on monounsaturated fats such as unprocessed chicken, turkey, nuts (excluding peanuts) and beans. 05/31/2024 Polycystic ovarian syndrome (ICD-10 - E28.2) 05/31/2024 Endometriosis, unspecified (ICD-10 - N80.9) 09/06/2024 Polycystic ovarian syndrome (ICD-10 - E28.2) 02/22/2024 Iron deficiency anemia, unspecified (ICD-10 - D50.9) Send in vitamin with iron-she had best improvement when taking vitapearl with DHA vitamin in past. 05/31/2024 Obesity, unspecified (ICD-10 - E66.9) 09/06/2024 Endometriosis, unspecified (ICD-10 - N80.9) 02/22/2024 Obesity, unspecified (ICD-10 - E66.9) discussed dietary measures in regards to weight loss- importance to restrict calories to 1200 per day if sedentary vs 8798-2988 calories depending on caloric expenditure. She was provided information on [email or web address] as this program manages metabolic syndrome and products include insulin sensitizers along with thyroid support/supplementation to help tailor weight loss in individuals who struggle with underlying autoimmune thyroid conditions and hyperglycemia (fasting glucose of 97 mg/dL). Spent up to 20 minutes discussing alternative weight loss options along with addition of phentermine 30 mg daily- patient aware of palpitations, anxiety, hypertension and dry mouth which can be common in stimulant therapy. She is aware to contact clinic if any concerns and aware she can discontinue if any concerns upon starting therapy. 05/31/2024 Vitamin D deficiency, unspecified (ICD-10 - E55.9) 09/06/2024 Obesity, unspecified (ICD-10 - E66.9) 05/31/2024 Other fatigue (ICD-10 - R53.83) 02/22/2024 Other Spent 25 minute s preparing to see the patient (ex review of tests/chart), obtaining and / or reviewing separately obtained history, performing a medically appropriate examination and/or evaluation, counseling and educating the patient/family/caregiver , ordering medications, tests, or procedures, referring and communicating with other health laboratory animal care veterinarian, documenting clinical information in the electronic or other health record, independently interpreting results and communicating results to the patient/family/caregiver and care coordinating patient plan. Patient alert and oriented x 4 and aware of discussion noted above and in agreeance to plan in management of obesity/weight management, PCOS and TRAVIS/endometriosis. 05/31/2024 Other Assessment and Plan: 1. Urine cortisol and ACTH plasma levels:- Normal urine cortisol at 16 and ACTH plasma at 10.6. No further action needed at this time. 2. Glucose, creatinine, ALT, and AST levels:- All within normal range. Continue monitoring during routine lab work. 3. Lipid profile:- LDL at 101. Continue monitoring during routine lab work. 4. Thyroid function:- TSH at 0.938 and free T3 at 3.6. Thyroid levels within normal range. Continue monitoring during routine lab work. 5. Iron saturation and Vitamin D levels:- Iron saturation at 40% and Vitamin D at 31.9. Both within normal range. Continue monitoring during routine lab work. 6. Testosterone level:- Testosterone at 13. Continue monitoring during routine lab work. 7. Medication management:- Patient is currently on norethindrone 5 mg daily, Orilissa, gabapentin as needed, phentermine once a day, baclofen 10 mg daily, nortriptyline as needed, propranolol, spironolactone 100 mg, and Zomig as needed. Refill baclofen and [facility] to [facility]. No other refills needed at this time. 8. Dexamethasone suppression test:- Patient has a dexamethasone tablet from a previous test. No need to provide a new one. 9. Calcium level:- Calcium at 10.3, slightly higher than the normal range. Recommend discussing with Dr. High for further evaluation and management. 10. Follow-up appointments:- Schedule a follow-up appointment in three to four months. Telehealth visits are acceptable as long as an in-person visit occurs at least once a year. 11. Labs and communication:- Order basic labs for Arelis and email the results to her parents. Provide a copy of the recent lab work to the patient through the [facility] portal. Spent 25 minutes preparing to see the patient (ex review of tests/chart), obtaining and / or reviewing separately obtained history, performing a medically appropriate examination and/or evaluation, counseling and educating the patient/family/caregiver , ordering medications, tests, or procedures, referring and communicating with other health laboratory animal care veterinarian, documenting clinical information in the electronic or other health record, independently interpreting results and communicating results to the patient/family/caregiver and care coordinating patient plan. Patient alert and oriented x 4 and aware of discussion noted above and in agreeance to plan in management of PCOS, obesity, vit D def and fatigue. Due to the nature of telemedicine, the [...] were discussed and all questions were answered. 09/06/2024 Other Assessment and Plan: Polycystic Ovary [...] procedures, referring and communicating with other health laboratory animal care veterinarian, documenting clinical information in the electronic or [...] all questions were answered. Plan Of Treatment No Information Insurance Providers Payer Name Payer Address Payer Phone Subscriber Number Group Number Insured Name Patient Relationship to Insured Coverage Start Date Coverage End Date [facility] [address] [place] [address] [id number] Nikita Arelis Self - patient is the insured Medical (General) History Medical History History ICD Code Polycystic ovarian syndrome E28.2 Chronic migraine without aura, not intra ctable, without status migrainosus G43.709 Surgical History Surgery Date(Month/Year) Endometriosis 2021
--- OUTSIDE RECORDS SUMMARY | 2025-01-13 07:15 | XMS_ITS | Referral Summary ---
Author Organization [facility] Address [address] [place] [address] Care Team Providers Care Sample Examiner Name Role Phone DhillonBerny soto Primary Care Provider + Velasquez Ty MD Unavailable Encounters Date Type Department Care Team Description 11/12/2024 Orders Only [facility] [place] [address] [place] [id number] Galen Aguiar MD from Last 3 Months Allergies Active Allergy Reactions Criticality Noted Date [...] tablet by mouth every morning 2 Active [id number]- folic acid-dha (Prena1 Cat) 30-1.4-200 mg capsule,IR [...] than 05/20/21, 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 In the interim, follow-up with PCP for [...] 09/21/2020 Assessment & Plan (09/21/2020 5:57 PM AUDIT CLERK): Advised to get chest xray. Instructed to [...] 04/24/2020 Assessment & Plan (09/18/2020 4:36 PM AUDIT CLERK): Patient has personal history of prior abnormal [...] 04/24/2020 Assessment & Plan (09/18/2020 4:37 PM AUDIT CLERK): Patient has history of prior noncontrast enhancing [...] 10/19/2019 Assessment & Plan (10/19/2019 10:08 AM AUDIT CLERK): Recommended Neosporin applied topically two-three times a [...] keep follow-up with dentist next week and strategic planning specialist on 01/06/21, go to ER over weekend for worsening symptoms. Tooth pain with chewing 12/18/202012/12 Assessment & Plan (12/18/2020 1:27 PM CDT): Advised to continue antibiotic and and ibuprofen per dentist. Instructed to keep follow-up with dentist next week and strategic planning specialist on 01/06/21, go to ER over weekend [...] 12/31/19 Assessment & Plan (09/21/2020 5:56 PM AUDIT CLERK): See plan of care for COVID-19 infection. Viral gastroenteritis 08/01/20202020 Assessment & Plan (08/01/2020 4:24 AM AUDIT CLERK): Zofran every 8 hours as needed for [...] 12/30/2020 Assessment & Plan (08/01/2020 4:24 AM AUDIT CLERK): Zofran prescribed, see plan of care for viral gastroenteritis. Memory loss 04/24/2020 12/30/2020 Assessment & Plan (09/18/2020 4:36 PM AUDIT CLERK): Patient reports no current memory impairment or [...] 12/30/2020 Assessment & Plan (06/28/2020 7:50 AM AUDIT CLERK): Started on Medrol Dosepak as directed and and advised to continue antibiotic prescribed by PCP. A note was written per request to be excused for absences from work 06/23/20 and 06/25-06/27/20. Assessment & Plan (09/20/2019 2:38 PM AUDIT CLERK): Medrol Dosepak as directed. Tessalon Perles one [...] septum 2020 Overview (06/25/2020): Deviated septum; Comments: KJP 03/20/2015 - Immunizations Immunization Administration Dates Next Due DTaP 05/03/2000, 7,02/09/1996,1995,0 1995 Hep B Vaccine 04/18/1996,1995 Hep B, Adolescent or Pediatric 1995 Hib (PRP-T) 10/25/1996 IPV 02/21/1997,07/23/1996,1995 ,1995 Influenza, Unspecified 12/30/2020(Deferred: Pam ent decision) MMR 05/03/2000,10/25/1996 Tdap 12/31/2015,03/23/2010 Social History Tobacco Use Types Packs/Day Years [...] on file Legal Sex Female 9:05 PM AUDIT CLERK Gender Identity Female 09/29/2022 11:39 PM AUDIT CLERK Sexual Orientation Straight 09/29/2022 11 :39 PM AUDIT CLERK Last Filed Vital Signs Vital Sign Reading [...] 03/22/2024 2:41 PM CDT Plan of Treatment Not on file Procedures Procedure Name Priority Date/Time Associated Diagnosis Comments SCAN - LABS 11/12/2024 PAP WITH REFLEX TO HIGH RISK HPV Routine 10/05/2021 3:54 PM AUDIT CLERK Encounter for annual routine gynecological examination from Last 3 Months or Most Recently Relevant to Health Maintenance Results * SCAN - LABS (11/12/2024) us Galen Aguiar MD Final Resu lt * Pap with reflex to High Risk HPV (10/05/2021 3:54 PM AUDIT CLERK) Thin prep (Pap test) 10/05/2021 3:54 PM AUDIT CLERK 10/06/2021 3:54 PM AUDIT CLERK Narrative PATHOLOGY [facility] - 10/11/2021 1:35 PM AUDIT CLERK [facility] Department of Pathology [address] [place], [place] [id number] Final Report Note to Patients: This report [...] the details. Patient Name: ARELIS SHELTON Address: [address] [place] [address] Gender: F : 1995 (Age: 26) Service: Laboratory Location: Hospital #: [id number] Patient Type: [employer] SPECIMEN Taken: 10/05/2021 Received: 10/06/2021 Accessioned:: 10/07/2021 Reported: 10/11/2021 [facility]ician([facility] Diagnosis: Source of Specimen: Imaged Thinprep Pap Test w/ Reflex HPV - Call Center Coordinator Cytologic Material Specimen Adequacy: - Satisfactory for evaluation; endocervical/transformation zone component present - This case was rejected by computer assisted technology and was manually screened by a customs verifier General Category: - Negative for intraepithelial lesion or malignancy TARI Larson(ASCP) Report Electronically Reviewed and Signed Out By TARI Larson(ASCP) 10/11/2021 13:35:30 Specimen(s) Received: A: Imaged Thinprep Pap Test w/ Reflex HPV - Call Center Coordinator Cytologic Material Clinical History: Last Menstrual Period: [...] determined by the Surgical Pathology Department at [facility] as part of an ongoing quality reviewer program and in compliance with federally mandated [...] characteristics determined by the Surgical Pathology Department [facility]. It has not been cleared or approved by the [place]. S. Food and Drug Administration. Carmita Levy NP LAB CYTOLOGY ORDERABLES Final Re sult PATHOLOGY [facility] from Last 3 Months or Most Recently Relevant to Health Maintenance [place] Advance Directives For more information, please contact: [phone] * Full Code (Latest Code Status on File) Date Activated Date Inactivated Comments 04/24/2023 9:46 AM 04/26/2023 8:37 PM Care Teams Sample Examiner Relationship Specialty Start Date End Date Berny Dhillon DO [facility] [address] PCP - General Family Medicine 02/11/19 Velasquez Ty MD [address] [facility] [address] Consulting Physician Pain Management 03/23/23
[2025-01-13 08:32] LABS: Cortisol Random 1.06 ug/dL
== END 2025-01-13 07:07 | disposition home or self-care (01) ==
LOC: ANHLAB 07:11
PROVIDERS: PCP Family Medicine; Visit Provider Internal Medicine Endocrinology, Diabetes & Metabolism
DX: R53.82 Chronic fatigue, unspecified (principal); E66.9 Obesity, unspecified; E34.9 Endocrine disorder, unspecified
CPT/HCPCS: 36415; 80299; 82533

== ENCOUNTER 2025-02-04 07:40 | Outpatient (CLI) | payer BC, SELFPAY ==
[2025-02-04 09:48] LABS: Cortisol Random 0.86 ug/dL
== END 2025-02-04 07:41 | disposition home or self-care (01) ==
PROVIDERS: PCP Family Medicine; Visit Provider Internal Medicine Endocrinology, Diabetes & Metabolism
DX: E66.9 Obesity, unspecified (principal); R53.82 Chronic fatigue, unspecified; E34.9 Endocrine disorder, unspecified
CPT/HCPCS: 36415; 82533

== ENCOUNTER 2025-07-18 08:17 | Outpatient (CLI) | payer BC, SELFPAY ==
--- NOTE | ~2025-07-18 | US_ITS ---
ULTRASOUND ABDOMEN LIMITED (RIGHT UPPER QUADRANT) Clinical History: fatty liver Comparison: None Technique: Right upper quadrant sonography Findings: Liver: Normal size. Echogenic. No intrahepatic biliary ductal dilatation. Normal hepatopedal flow main portal vein. Common Duct: Normal caliber. 4 mm. Gallbladder: Stones. No wall thickening. No pericholecystic fluid. Negative sonographic Rubi's sign per technologist report. Pancreas: Mostly obscured by bowel gas. IMPRESSION: 1. Hepatic steatosis and/or hepatocellular disease. 2. Gallstones. No evidence of cholecystitis. Reviewed, dictated and finalized at location R. EY ENGINEER
== END 2025-07-18 08:18 | disposition home or self-care (01) ==
PROVIDERS: PCP Family Medicine; Visit Provider Internal Medicine Endocrinology, Diabetes & Metabolism
DX: K76.0 Fatty (change of) liver, not elsewhere classified (principal)
CPT/HCPCS: 76705